=== PATIENT | male | born 1935 | race Caucasian/White ===

== ENCOUNTER → 2019-04-12 | Outpatient (CLI) | payer MEDICARE, MEDICAID ==
[~2019-04-12] MED LIST: ACET325T38 PO; ASCO500T7 PO; ASPI-983 PO; ATOR10TA PO; BISA10SU8 RC; CALC500T7 PO; CARV12.53 PO; CHOL10007 PO; CLON0.1T PO; CLOP75TA28 PO; DOCU-143 PO; DOXA1TAB2 PO; EXEN2AUT SQ; FERR-84 PO; FURO40TA4 PO; GABA-486 PO; INSU100I14 SQ; INSU100I29 SQ; LACT20SO2 PO; MAGN400O7 PO; MICO10PO TOP; MINE3.5O4 OU; NITR0.4T42 SL; OLOP2.5D OU; PANT40TA3 PO; PARO20TA5 PO; RISP0.253 PO; SUCR1TAB36 PO; TR1C15 TP; VERA120T6 PO; VERA240C2 PO; VITA1TAB17 PO
[2019-04-12 11:25] LABS: ALBUMIN 3.7 GM/DL (3.2-4.5); BILIRUBIN,TOTAL 0.4 MG/DL (0.1-1.0); CALCIUM 9.1 MG/DL (8.5-10.1); CREATININE SERUM 1.75 MG/DL (0.60-1.30); POTASSIUM 4.3 MMOL/L (3.6-5.0); TOTAL PROTEIN 6.4 GM/DL (6.4-8.2)
--- NOTE | 2019-04-12 13:54 | Diagnostic Imaging Report ---
PROCEDURE: CT head without contrast. TECHNIQUE: Multiple contiguous axial images were obtained through the brain without the use of intravenous contrast. Auto Exposure Controls were utilized during the CT exam to meet ALARA standards for radiation dose reduction. INDICATION: Right-sided weakness. FINDINGS: There is cerebral cortical atrophy, vascular calcifications and chronic appearing periventricular white matter small vessel disease. There is chronic prominence of the cisterna magna. The ventriculomegaly is congruent with the degree of sulcation. No yung hydrocephalus is present. No focal or generalized cerebral edema and no evidence for hemorrhage or elevation of the pressures. IMPRESSION: Chronic atrophy, white matter disease and atherosclerosis with chronic prominence of the cisterna magna. No hemorrhage, edema or acute finding identified. Dictated by: Dictated on workstation # [id number]
== END ==
LOC: RAD 10:44
PROVIDERS: ATTEND Internal Medicine
DX: Z01.812 Encounter for preprocedural laboratory examination (principal); G31.9 Degenerative disease of nervous system, unspecified; I67.2 Cerebral atherosclerosis; F02.81 Dementia in other diseases classified elsewhere, unspecified severity, with behavioral disturbance; R90.82 White matter disease, unspecified
CPT/HCPCS: 36415; 70450; 80053

== ENCOUNTER 2019-05-14 17:15 | Emergency (ER) | payer MEDICARE, MEDICAID ==
[~2019-05-14] VITALS: Ht 170.1 cm; Wt 90.7 kg
[~2019-05-14 17:15] MED LIST changes: -CARV12.53 PO; -CLON0.1T PO; -FERR-84 PO; -FURO40TA4 PO; -PANT40TA3 PO; -SUCR1TAB36 PO
[2019-05-14] MEDS ORDERED: ASPIRIN 81 MG CHEW (CHILDREN'S ASA) PO ONE (18:15)
[2019-05-14] MEDS ORDERED: PANTOPRAZOLE 40 MG (PROTONIX) VIAL IV ONE ×2 (18:15→19:45)
[2019-05-14 18:23] LABS: BASOPHILS % (AUTO) 0 % (0-10); EOSINOPHILS # (AUTO) 0.2 10^3/uL (0.0-0.3); EOSINOPHILS % (AUTO) 2 % (0-10); HEMATOCRIT 27 % (40-54); HEMOGLOBIN 8.7 G/DL (13.3-17.7); LYMPHOCYTES # (AUTO) 1.4 X 10^3 (1.0-4.0); LYMPHOCYTES % (AUTO) 14 % (12-44); MEAN CORPUSCULAR HEMOGLOBIN 27 PG (25-34); MEAN CORPUSCULAR HGB CONC 32 G/DL (32-36); MEAN CORPUSCULAR VOLUME 86 FL (80-99); MEAN PLATELET VOLUME 11.5 FL (7.4-10.4); MONOCYTES # (AUTO) 0.8 X 10^3 (0.0-1.0); MONOCYTES % (AUTO) 8 % (0-12); NEUTROPHILS # (AUTO) 7.3 X 10^3 (1.8-7.8); NEUTROPHILS % (AUTO) 76 % (42-75); PLATELET COUNT 389 10^3/uL (130-400); RED CELL DISTRIBUTION WIDTH 13.5 % (10.0-14.5); WHITE BLOOD COUNT 9.7 10^3/uL (4.3-11.0)
[2019-05-14 18:26] LABS: INR 1.1 (0.8-1.4); PROTHROMBIN TIME PATIENT 14.1 SEC (12.2-14.7)
[2019-05-14 18:40] LABS: ALBUMIN 3.9 GM/DL (3.2-4.5); BILIRUBIN,TOTAL 0.3 MG/DL (0.1-1.0); CALCIUM 9.4 MG/DL (8.5-10.1); CREATININE SERUM 2.75 MG/DL (0.60-1.30); MAGNESIUM 1.9 MG/DL (1.6-2.4); POTASSIUM 4.4 MMOL/L (3.6-5.0); TOTAL PROTEIN 6.8 GM/DL (6.4-8.2)
[2019-05-14 18:47] LABS: CREATINE KINASE MB 1.8 NG/ML (<6.6)
--- NOTE | 2019-05-14 19:07 | Diagnostic Imaging Report ---
CLINICAL INDICATION: Patient with chest pain. EXAM: Portable chest x-ray upright view. COMPARISONS: Chest x-ray dated 05/03/2019. FINDINGS: Lungs/pleura: Lungs are clear. There is no pneumothorax. There is no pleural effusion. Mediastinum: Unremarkable. Pulmonary vasculature: Unremarkable. Heart: Stable upper limits of normal heart size. Bones/extrathoracic soft tissue: Unremarkable. IMPRESSION: Stable chest x-ray exam with no interval radiographic evidence of acute cardiopulmonary process. Dictated by: Dictated on workstation # [id number]
[2019-05-14 19:10] LABS: BILIRUBIN,URINE NEGATIVE (NEGATIVE); CLARITY,URINE CLEAR; COLOR,URINE YELLOW; GLUCOSE, URINE (UA) NEGATIVE (NEGATIVE); KETONES,URINE NEGATIVE (NEGATIVE); LEUKOCYTE ESTERASE ,URINE NEGATIVE (NEGATIVE); NITRITE,URINE NEGATIVE (NEGATIVE); PROTEIN,URINE 2+ (NEGATIVE)
[2019-05-14 19:23] LABS: BACTERIA,URINE TRACE /HPF
[2019-05-14 19:24] LABS: AMORPHOUS SEDIMENT,UR MOD AMOR URATES /LPF
--- NOTE | 2019-05-14 19:37 | ED Cardiac General ---
History of Present Illness General Chief Complaint: Chest Pain Stated Complaint: POSSIBLE SEPTIC, ABNORMAL LABS Nursing Triage Note: PATIENT BROUGHT FROM THE S[facility]IOR [facility]IVING WITH COMPLAINT OF CHEST PAIN, ABNORMAL LABS, ANEMIA AND POSSIBLE SEPSIS. 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 DID NOT EAT MEALS TODAY. PT STATES PAIN IS IN HIS MID AND LOWER CHEST DENIES COUGH DENIES SWEATS DENIES NAUSEA OR VOMITING NO KNOWN FEVER OR SWEATS PT DENIES SWELLING IN HIS LEGS/FEET, BUT DOES HAVE LEG EDEMA ON EXAM STAFF MEMBER STATES THEY WERE GETTING READY TO HAVE DINNER, WHEN THE DR CALLED AND SAID HE NEEDED TO COME HERE--HAD LAB DONE TODAY AND HGB WAS 7.6, SED RATE WAS ELEVATED AND HIS CREATININE WAS ELEVATED TO 2.7 PT WAS ADMITTED HERE 05/03-05/05 WITH NSTEMI ( ONLY OTHER TIME HE HAS BEEN TO THIS FACILITY) PT WAS TREATED CONSERVATIVELY, BASED ON PT'S AGE, LEVEL OF DEMENTIA, AFTER DISCUSSION WITH PT'S DAUGHTER, WHO IS DPOA. HE DID NOT HAVE A CARDIAC CATH, BUT WAS STARTED ON ASPIRIN AND PLAVIX. PT ALSO HAD CHF AND VERY ELEVATED BP AT THAT TIME. PT IS DNR/DNI PT HAS BEEN RESIDENT AT [facility] SINCE 01/16/19 PRIOR TO THAT HE WAS AT [facility], AND PRIOR TO THAT HE WAS A RESIDENT AT [facility] IN [place], [place]. NTG SL SODA DRIER FEEDER: No ASA po SODA DRIER FEEDER: No PCP: [facility] Allergies and Home Medications Allergies Coded Allergies: No Known Drug Allergies (Unverified , 05/03/19) Home Medications Acetaminophen 325 Mg Tablet, 325 MG PO Q6H PRN for PAIN-MILD (1-4), (Reported) Ascorbic Acid 500 Mg Tablet, 1,000 MG PO BID, (Reported) TAKES 2 (500MG) TABLETS Aspirin 81 Mg Tablet.dr, 81 MG PO DAILY, (Reported) Atorvastatin Calcium 10 Mg Tablet, 10 MG PO DAILY, (Reported) Bisacodyl 10 Mg Supp.rect, 10 MG RC DAILY PRN for CONSTIPATION-4TH LINE, (Reported) Calcium Carbonate 200 Mg Tab.chew, 2 TAB.CHEW PO BID, (Reported) Cholecalciferol (Vitamin D3) 1,000 Unit Capsule, 2,000 UNIT PO DAILY, (Reported) Clopidogrel Bisulfate 75 Mg Tablet, 75 MG PO DAILY Prescribed by: MARSHALL ORTIZ on 05/05/191216 Docusate Sodium 100 Mg Capsule, 100 MG PO BID, (Reported) Doxazosin Mesylate 1 Mg Tablet, 1 MG PO DAILY, (Reported) Exenatide Microspheres 2 Mg/0.85 Ml Auto.injct, 2 MG SQ We, (Reported) Gabapentin 100 Mg Capsule, 100 MG PO BID, (Reported) Insulin Aspart 300 Units/3 Ml Solution, 8 UNITS SQ TIDAC, (Reported) Insulin Detemir 100 Unit/1 Ml Insuln.pen, 25 UNIT SQ HS, (Reported) HOLD IF BLOOD SUGAR IS LESS THAN 70 Lactulose 20 Gm/30 Ml Solution, 30 ML PO Q8H PRN for CONSTIPATION-3RD LINE, (Reported) Magnesium Hydroxide 400 Mg/5 Ml Oral.susp, 30 ML PO DAILY PRN for CONSTIPATION- 7TH LINE, (Reported) Miconazole Nitrate 10 Gm Powder, TOP BID, (Reported) APPLY TO ABDOMINAL FOLD Mineral Oil/Petrolatum,White 3.5 Gm Oint...g., OU HS PRN for EYE REDNESS, (Reported) Nitroglycerin 0.4 Mg Tab.subl, 0.4 MG SL PRN PRN for CHEST PAIN (ANGINA) Prescribed by: MARSHALL ORTIZ on 05/05/191216 Olopatadine HCl 2.5 Ml Drops, 1 DROP OU DAILY, (Reported) Paroxetine HCl 20 Mg Tablet, 20 MG PO DAILY, (Reported) Risperidone 0.25 Mg Tablet, 0.25 MG PO BID, (Reported) Triamcinolone Acet 15 Gm Cr, TP BID, (Reported) APPLY TO L THUMB Verapamil HCl 240 Mg Cap24h.pel, 240 MG PO BID, (Reported) Verapamil HCl 120 Mg Tablet, 120 MG PO BID, (Reported) Vitamin B Complex 1 Each Tablet, 2 TAB PO DAILY, (Reported) Patient Home Medication List Home Medication List Reviewed: Yes Review of Systems Review of Systems Constitutional: No chills, No diaphoresis, No dizziness, No fever Respiratory: See HPI, Shortness of Air, SOA With Exertion Cardiovascular: See HPI, Chest Pain, Edema; Denies Lightheadedness, Denies Syncope Gastrointestinal: Abdominal Pain; Denies Constipated, Denies Diarrhea; Poor Appetite; Denies Vomiting Genitourinary: No Symptoms Reported Musculoskeletal: no symptoms reported Skin: no symptoms reported Psychiatric/Neurological: No Symptoms Reported Endocrine: No Symptoms Reported Hematologic/Lymphatic: See HPI Past Ujriqot-Ozszjo-Iojuol Hx Past Med/Social Hx: Reviewed and Corrections made Patient Social History Smoking Status: Unknown if Ever Smoked Recent Foreign Travel: No Contact w/Someone Who Travel: No Recent Infectious Disease Expo: No Recent Hopitalizations: No Immunizations Up To Date Date of Influenza Vaccine: Mar 28, 2019 Seasonal Allergies Seasonal Allergies: No Past Medical History Surgeries: No (UNKNOWN--PT CANNOT RECALL ) Respiratory: No Cardiac: Yes (NSTEMI 05/03/19--TREATED CONSERVATIVELY WITH ASPIRIN AND PLAVIX --NO CARDIAC CATH; ECHOCARDIOGRAM 05/04/19--EF 40-45%, MILD MR, TR AND AR, HYPOKINESIS OF INFERIOR LATERAL MYOCARDIUM; CHF) Coronary Artery Disease, Heart Attack, High Cholesterol, Hypertension Neurological: Yes (VASCULAR DEMENTIA; PERIPHERAL NEUROPATHY; ESSENTIAL TREMOR) Dementia, Neuropathy Genitourinary: Yes (RENAL INSUFFICIENCY; OCCASIONAL URINARY INCONTINENCE) Benign Prostatic Hyperpl, Renal Failure Gastrointestinal: Yes (OCCASIONAL BOWEL INCONTINENCE) Chronic Constipation, Ulcer Musculoskeletal: Yes (CHRONIC GENERALIZED PAIN AND WEAKNESS/GAIT DISTURBANCE) Endocrine: Yes Diabetes, Insulin dep HEENT: Yes (DRY EYES) Dysphagia Psychosocial: Yes (VASCULAR DEMENTIA WITH BEHAVIOR DISTURBANCE; SEXUAL AGGRESSIVE BEHAVIOR) Depression Integumentary: No Blood Disorders: Yes (ANEMIA) Physical Exam Vital Signs Vital Signs - First Documented 05/14/19 17:50 Temp 36.9 Pulse 62 Resp 18 B/P (MAP) 152/76 (101) Pulse Ox 95 O2 Delivery Room Air Capillary Refill : Less Than 3 Seconds Height, Weight, BMI Height: '" Weight: lbs. oz. kg; 31.00 BMI Method: General Appearance: No Apparent Distress, WD/WN HEENT: PERRL/EOMI, Pale Conjunctivae (L), Pale Conjunctivae (R) Neck: Normal Inspection Respiratory: Normal Breath Sounds, No Accessory Muscle Use, No Respiratory Distress Cardiovascular: Regular Rate, Rhythm, Systolic Murmur (FAINT), Extra Beats (OCCASIONAL ECTOPY C/W PVC'S) Gastrointestinal: Normal Bowel Sounds, No Organomegaly, No Pulsatile Mass, Non Tender, Soft Rectal: Normal Exam, Normal Rectal Tone, Heme Negative Stool (STOOL IS SOFT FORMED AND DARK BROWN); No Hemorrhoids, No Tenderness Extremity: Normal Capillary Refill, Normal Range of Motion, Non Tender, No Calf Tenderness, Pedal Edema (1+ ON LEFT, 2+ ON RIGHT) Neurologic/Psychiatric: Alert, No Motor/Sensory Deficits (GROSS MOTOR/SENSORY INTACT), 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 BUT CAN ANSWER QUESTIONS WHEN DOING REVIEW OF SYSTEMS; FLAT AFFECT. ) Skin: Warm/Dry, Pallor Focused Exam Lactate Level 05/14/19 18:46: Lactic Acid Level 1.01 Lactic Acid Level Laboratory Tests Test 05/14/19 18:46 Lactic Acid Level 1.01 MMOL/L (0.50-2.00) Progress/Results/Core Measures Results/Orders Lab Results Laboratory Tests Test 05/14/19 17:52 05/14/19 18:46 05/14/19 19:04 Range/Units White Blood Count 9.7 4.3-11.0 10^3/uL Red Blood Count 3.17 L 4.35-5.85 10^6/uL Hemoglobin 8.7 L 13.3-17.7 G/DL Hematocrit 27 L 40-54 % Mean Corpuscular Volume 86 80-99 FL Mean Corpuscular Hemoglobin 27 25-34 PG Mean Corpuscular Hemoglobin Concent 32 32-36 G/DL Red Cell Distribution Width 13.5 10.0-14.5 % Platelet Count 389 130-400 10^3/uL Mean Platelet Volume 11.5 H 7.4-10.4 FL Neutrophils (%) (Auto) 76 H 42-75 % Lymphocytes (%) (Auto) 14 12-44 % Monocytes (%) (Auto) 8 0-12 % Eosinophils (%) (Auto) 2 0-10 % Basophils (%) (Auto) 0 0-10 % Neutrophils # (Auto) 7.3 1.8-7.8 X 10^3 Lymphocytes # (Auto) 1.4 1.0-4.0 X 10^3 Monocytes # (Auto) 0.8 0.0-1.0 X 10^3 Eosinophils # (Auto) 0.2 0.0-0.3 10^3/uL Basophils # (Auto) 0.0 0.0-0.1 10^3/uL Prothrombin Time 14.1 12.2-14.7 SEC INR Comment 1.1 0.8-1.4 Activated Partial Thromboplast Time 40 H 24-35 SEC Sodium Level 137 135-145 MMOL/L Potassium Level 4.4 3.6-5.0 MMOL/L Chloride Level 101 98-107 MMOL/L Carbon Dioxide Level 25 21-32 MMOL/L Anion Gap 11 5-14 MMOL/L Blood Urea Nitrogen 40 H 7-18 MG/DL Creatinine 2.75 H 0.60-1.30 MG/DL Estimat Glomerular Filtration Rate 22 BUN/Creatinine Ratio 15 Glucose Level 127 H 70-105 MG/DL Calcium Level 9.4 8.5-10.1 MG/DL Corrected Calcium 9.5 8.5-10.1 MG/DL Magnesium Level 1.9 1.6-2.4 MG/DL Total Bilirubin 0.3 0.1-1.0 MG/DL Aspartate Amino Transf (AST/SGOT) 15 5-34 U/L Alanine Aminotransferase (ALT/SGPT) 14 0-55 U/L Alkaline Phosphatase 69 40-136 U/L Total Creatine Kinase 50 30-200 U/L Creatine Kinase MB 1.8 <6.6 NG/ML Myoglobin 226.4 H 10.0-92.0 NG/ML Troponin I < 0.028 <0.028 NG/ML B-Type Natriuretic Peptide 919.8 H <100.0 PG/ML Total Protein 6.8 6.4-8.2 GM/DL Albumin 3.9 3.2-4.5 GM/DL Amylase Level 34 25-125 U/L Lipase 51 8-78 U/L Lactic Acid Level 1.01 0.50-2.00 MMOL/L Urine Color YELLOW Urine Clarity CLEAR Urine pH 6.0 5-9 Urine Specific [place] >=1.030 1.016-1.022 Urine Protein 2+ H NEGATIVE Urine Glucose (UA) NEGATIVE NEGATIVE Urine Ketones NEGATIVE NEGATIVE Urine Nitrite NEGATIVE NEGATIVE Urine Bilirubin NEGATIVE NEGATIVE Urine Urobilinogen 0.2 < = 1.0 MG/DL Urine Leukocyte Esterase NEGATIVE NEGATIVE Urine RBC (Auto) NEGATIVE NEGATIVE Urine RBC NONE /HPF Urine WBC 2-5 /HPF Urine Crystals PRESENT H /LPF Urine Amorphous Sediment MOD CHING URATES H /LPF Urine Bacteria TRACE /HPF Urine Casts PRESENT /LPF Urine Hyaline Casts 2-5 H /LPF Urine Mucus NEGATIVE /LPF Urine Culture Indicated NO Micro Results Microbiology 05/14/19 Influenza Types A,B Antigen (ZOHREH) - Final, Complete My Orders Orders - JAMES LUNA DO Cbc With Automated Diff (05/14/19 18:04) Magnesium (05/14/19 18:04) Chest 1 View, Ap/Pa Only (05/14/19 18:04) Ekg Tracing (05/14/19 18:04) Comprehensive Metabolic Panel (05/14/19 18:04) Myoglobin Serum (05/14/19 18:04) Protime With Inr (05/14/19 18:04) Partial Thromboplastin Time (05/14/19 18:04) O2 (05/14/19 18:04) Monitor-Rhythm Ecg Trace Only (05/14/19 18:04) Ed Iv/Invasive Line Start (05/14/19 18:04) Creatine Kinase (05/14/19 18:04) Creatine Kinase Mb (05/14/19 18:04) Lipase (05/14/19 18:04) Amylase (05/14/19 18:04) BNP (05/14/19 18:04) Troponin I (05/14/19 18:04) Aspirin Chewable Tablet (Baby Aspirin Ch (05/14/19 18:15) Blood Culture (05/14/19 18:04) Urinalysis (05/14/19 18:04) Urine Culture (05/14/19 18:04) Ed Iv/Invasive Line Start (05/14/19 18:04) Ed Iv/Invasive Line Start (05/14/19 18:04) Vital Signs Adult Sepsis Patie Q15M (05/14/19 18:04) O2 (05/14/19 18:04) Remove Rings In Anticipation O (05/14/19 18:04) Lactic Acid Analyzer (05/14/19 18:04) Influenza A And B Antigens (05/14/19 18:04) Type And Screen (05/14/19 18:08) Pantoprazole Injection (Protonix Injecti (05/14/19 18:15) Red Cells Leukocytes Reduced (05/14/19 19:37) Pantoprazole Injection (Protonix Injecti (05/14/19 19:45) Medications Given in ED Current Medications Medications Dose Ordered Sig/Nano Route Start Time Stop Time Status Last Admin Dose Admin Aspirin 324 mg ONCE ONCE PO 05/14/19 18:15 05/14/19 18:16 DC 05/14/19 19:08 324 MG Pantoprazole 40 mg ONCE ONCE IV 05/14/19 18:15 05/14/19 18:16 DC 05/14/19 19:08 40 MG Pantoprazole 40 mg ONCE ONCE IV 05/14/19 19:45 05/14/19 19:46 DC 05/14/19 20:21 40 MG Vital Signs/I&O 05/14/19 05/14/19 05/14/19 17:50 17:50 21:48 Temp 36.9 Pulse 62 58 Resp 18 16 B/P (MAP) 152/76 (101) 138/72 (94) Pulse Ox 95 97 O2 Delivery Room Air Room Air Room Air Blood Pressure Mean: 101 POS Progress Progress Note : Progress Note RESTED QUIETLY FOR ENTIRE ER STAY PT HAD NO COMPLAINTS DURING STAY VITALS REMAINED STABLE NO DETERIORATION IN PT'S CONDITION DURING ER STAY ORDERED A UNIT OF BLOOD, BUT DUE TO MULTIPLE ANTIBODIES, IT COULD NOT BE CROSSMATCHED PRIOR TO PT'S TRANSFER Initial ECG Impression Date: May 14, 2019 Initial ECG Impression Time: 19:49 Initial ECG Rate: 61 Initial ECG Rhythm: Normal Sinus Initial ECG Comparisson: Changed (ST DEPRESSION LATERAL LEADS) Diagnostic Imaging Comments CXR--NO ACUTE PROCESS, PER RADIOLOGIST REPORT AT 1936 Reviewed: Reviewed by Me Departure Communication (Admissions) THIS FACILITY IS ON COMPLETE DIVERSION 1941--SPOKE WITH PT'S DAUGHTER AND DPOA, LYNDSEY, AND SHE REQUESTS THAT PT BE TRANSFERRED TO [facility] IN [place] 1954--CALLED [facility] 2001--SPOKE WITH DR. BIRD, ACCEPTS PT FOR ADMIT/TRANSFER Impression Primary Impression: Severe anemia Additional Impressions: Chest pain RECENT NSTEMI ON PLAVIX AND ASPIRIN THERAPY Acute on chronic renal failure Bilateral leg edema Hx of congestive heart failure Abdominal pain Decreased appetite Dementia DNR/DNI Disposition: XFER SHT-TRM HOSP Condition: Stable Transfer Transfer Reason: Diversion Transfer Facility: [facility] Method of Transfer: EMS Departure-Patient Inst. Referrals: ELMO CULLEN MD (PCP/Family) Primary Care Physician JAMES LUNA DO May 14, 2019 19:37 POS
--- NOTE | 2019-05-14 21:38 | NUR ---
[facility] contacted for patient transfer.
[2019-05-14 21:48] VITALS: BP 138/72
--- NOTE | 2019-05-14 21:48 | NUR ---
Report called to Jillian REO at [facility].
[2019-05-14 22:09] VITALS: BP 130/62
--- OUTSIDE RECORDS SUMMARY | 2019-06-08 20:55 | XMS REPORT | Continuity of Care Document ---
Author Organization Unknown Address Unknown Phone Unavailable Allergies Active Description Code Type Severity Reaction Onset Reported/Identified Relationship to Patient Clinical Status Yes NO KNOWN DRUG ALLERGIES UNKNOWN UNKNOWN Medications Medication Packaging Start Date St op Date Route Dosage Sig ACETAMINOPHEN ORAL TABLET 325mg(Tylenol) MG 01/09/2019 02/08/2019 PRN EVERY 4 Hour SUCRALFATE TAB 1 GM (CARAFATE) GM 01/09/2019 02/08/2019 PRN Q4H INSULIN ASPART PEN INJ 100 U NITS/CC (NOVOLOG FLEXPEN) UNITS 01/09/2019 02/08/2019 AC&0630,1130,1630 CALCIUM CARBONATE TAB 500 MG (TUMS) MG 01/09/2019 02/08/2019 PRN Q6H GABAPENTIN CAP 100 MG (NEURONTIN) MG 01/09/2019 02/08/2019 BID&0800,2000 Docusate sodium 100mg oral capsule (COLACE ) 01/09/2019 02/08/2019 BID&0800,2000 ASCORBIC ACID TAB 500 MG (VITAMIN C) MG 01/09/2019 02/08/2019 BID&0800,2000 AMLODIPINE TAB 2.5 MG (NORVASC) MG 01/09/2019 02/08/2019 BID&0800,2000 Nystatin top powder (Mycostatin) APPLICATION 01/09/2019 01/23/2019 PRN BID SIMVASTATIN TAB 10 MG (ZOCOR) MG 01/09/2019 02/07/2019 QPM&2000 CALCIUM CARBONATE TAB 500 MG (TUMS) TABS 01/09/2019 02/08/2019 BID&0800,2000 INSULIN DETEMIR PEN INJ 100 UNITS/CC (LEVEMIR FLEXPEN) UNITS 01/09/2019 02/07/2019 QHS&2100 PAROXETINE TAB 20 MG (PAXIL) MG 01/10/2019 02/08/2019 QAM&0800 ASPIRIN ENTERIC COATED TAB 8 1 MG (BABY ASPIRIN EC) MG 01/10/2019 02/08/2019 QAM&0800 DOXAZOSIN TAB 2 MG (CARDURA) MG 01/10/2019 02/08/2019 QAM&0800 POLYETHYLENE GLYCOL POWDER U D PWD (MIRALAX 17GM UNIT DOSE PAKS) gm 01/10/2019 01/20/2019 PRN Q3H VITAMIN B COMPLEX TAB (B COMPLEX) cap 01/10/2019 02/08/2019 QAM&0800 PAROXETINE TAB 20 MG (PAXIL) MG 01/10/2019 02/08/2019 Daily&0900 VITAMIN D-3 TAB 1000 UNITS (VITAMIN D-3) UNITS 01/10/2019 02/08/2019 Daily&0900 BISACODYL SUPPOS 10 MG (DULCOLAX SUPPOS) MG 01/10/2019 02/09/2019 PRN Daily MILK OF MAGNESIA LIQ ml 01/10/2019 02/09/2019 PRN Daily LACTULOSE SYRUP LIQ 20 GM/30 CC (CHRONULAC SYRUP) GM 01/12/2019 02/10/2019 BID&0800,2000 INSULIN ASPART PEN INJ 100 U NITS/CC (NOVOLOG FLEXPEN) Dr. Borja UNITS 01/14/2019 01/14/2019 ONCE&1630 TRIAMCINOLONE CRM CRM 0.1 % (ARISTOCORT C RM) doug 01/14/2019 01/24/2019 BID&0800,2000 INSULIN ASPART PEN INJ 100 U NITS/CC (NOVOLOG FLEXPEN) Dr. Borja UNITS 01/15/2019 02/13/2019 AC&0630,1130,163 0 Problems Date Dx Coded Attending Type Code Diagnosis Diagnosed By 01/09/2019 YASEMIN ROWELL 781 .3 LACK OF COORDINATION 01/09/2019 YASEMIN ROWELL 787 .20 DYSPHAGIA, UNSPECIFIED 01/09/2019 YASEMIN ROWELL R13 .10 DYSPHAGIA, UNSPECIFIED 01/09/2019 YASEMIN ROWELL R27 .8 OTHER LACK OF COORDINATION 01/09/2019 YASEMIN ROWELL 781 .3 LACK OF COORDINATION 01/09/2019 YASEMIN ROWELL 787 .20 DYSPHAGIA, UNSPECIFIED 01/09/2019 YASEMIN ROWELL R13 .10 DYSPHAGIA, UNSPECIFIED 01/09/2019 YASEMIN ROWELL R27 .8 OTHER LACK OF COORDINATION 01/09/2019 YASEMIN ROWELL W V60 .89 OTHER SPECIFIED HOUSING OR ECONOMIC CIRCUMSTANCES 01/09/2019 YASEMIN ROWELL Z74 .1 NEED FOR ASSISTANCE WITH PERSONAL CARE 01/09/2019 YASEMIN ROWELL 585 .3 CHRONIC KIDNEY DISEASE, STAGE III (MODERATE) 01/09/2019 YASEMIN ROWELL W 715 .09 OSTEOARTHROSIS, GENERALIZED, INVOLVING MULTIPLE SITES 01/09/2019 ANATOLYTAGLYASEMIN BAKER W 781 .0 ABNORMAL INVOLUNTARY MOVEMENTS 01/09/2019 ANATOLYTAGLYASEMIN BAKER W 781 .3 LACK OF COORDINATION 01/09/2019 YASEMIN ROWELL 787 .20 DYSPHAGIA, UNSPECIFIED 01/09/2019 YASEMIN ROWELL M15 .0 PRIMARY GENERALIZED (OSTEO)ARTHRITIS 01/09/2019 YASEMIN ROWELL N18 .3 CHRONIC KIDNEY DISEASE, STAGE 3 (MODERATE) 01/09/2019 YASEMIN ROWELL R13 .10 DYSPHAGIA, UNSPECIFIED 01/09/2019 YASEMIN ROWELL R25 .1 TREMOR, UNSPECIFIED 01/09/2019 YASEMIN ROWELL R27 .8 OTHER LACK OF COORDINATION 01/09/2019 YASEMIN ROWELL V60 .89 OTHER SPECIFIED HOUSING OR ECONOMIC CIRCUMSTANCES 01/09/2019 YASEMIN ROWELL Z74 .1 NEED FOR ASSISTANCE WITH PERSONAL CARE 01/09/2019 YASEMIN ROWELL 294 .21 DEMENTIA, UNSPECIFIED, IN CONDITIONS CLASSIFIED ELSEWHERE WITH BEHAVIORAL DISTURBANCE 01/09/2019 YASEMIN ROWELL W 333 .1 ESSENTIAL AND OTHER SPECIFIED FORMS OF TREMOR 01/09/2019 YASEMIN ROWELL 585 .3 CHRONIC KIDNEY DISEASE, STAGE III (MODERATE) 01/09/2019 YASEMIN ROWELL W 715 .09 OSTEOARTHROSIS, GENERALIZED, INVOLVING MULTIPLE SITES 01/09/2019 CHARLINEGLYASEMIN BAKER W 781 .0 ABNORMAL INVOLUNTARY MOVEMENTS 01/09/2019 YASEMIN ROWELL 781 .3 LACK OF COORDINATION 01/09/2019 YASEMIN ROWELL 787 .20 DYSPHAGIA, UNSPECIFIED 01/09/2019 YASEMIN ROWELL W F03 .91 UNSPECIFIED DEMENTIA WITH BEHAVIORAL DISTURBANCE 01/09/2019 YASEMIN ROWELL G25 .0 ESSENTIAL TREMOR 01/09/2019 YASEMIN ROWELL M15 .0 PRIMARY GENERALIZED (OSTEO)ARTHRITIS 01/09/2019 YASEMIN ROWELL N18 .3 CHRONIC KIDNEY DISEASE, STAGE 3 (MODERATE) 01/09/2019 YASEMIN ROWELL W R13 .10 DYSPHAGIA, UNSPECIFIED 01/09/2019 YASEMIN ROWELL R25 .1 TREMOR, UNSPECIFIED 01/09/2019 YASEMIN ROWELL W R27 .8 OTHER LACK OF COORDINATION 01/09/2019 YASEMIN ROWELL V12 .71 PERSONAL HISTORY OF PEPTIC ULCER DISEASE 01/09/2019 YASEMIN ROWELL V60 .89 OTHER SPECIFIED HOUSING OR ECONOMIC CIRCUMSTANCES 01/09/2019 YASEMIN ROWELL Z74 .1 NEED FOR ASSISTANCE WITH PERSONAL CARE 01/09/2019 YASEMIN ROWELL Z87 .11 PERSONAL HISTORY OF PEPTIC ULCER DISEASE 01/09/2019 YASEMIN ROWELL W 272 .4 OTHER AND UNSPECIFIED HYPERLIPIDEMIA 01/09/2019 YASEMIN ROWELL W 294 .21 DEMENTIA, UNSPECIFIED, IN CONDITIONS CLASSIFIED ELSEWHERE WITH BEHAVIORAL DISTURBANCE 01/09/2019 YASEMIN ROWELL W 296 .30 MAJOR DEPRESSIVE DISORDER, RECURRENT EPISODE, UNSPECIFIED DEGREE 01/09/2019 YASEMIN ROWELL W 333 .1 ESSENTIAL AND OTHER SPECIFIED FORMS OF TREMOR 01/09/2019 YASEMIN ROWELL W 585 .3 CHRONIC KIDNEY DISEASE, STAGE III (MODERATE) 01/09/2019 YASEMIN ROWELL 715 .09 OSTEOARTHROSIS, GENERALIZED, INVOLVING MULTIPLE SITES 01/09/2019 YASEMIN ROWELL 781 .0 ABNORMAL INVOLUNTARY MOVEMENTS 01/09/2019 YASEMIN ROWELL W 781 .3 LACK OF COORDINATION 01/09/2019 YASEMIN ROWELL 787 .20 DYSPHAGIA, UNSPECIFIED 01/09/2019 YASEMIN ROWELL E78 .5 HYPERLIPIDEMIA, UNSPECIFIED 01/09/2019 YASEMIN ROWELL W F03 .91 UNSPECIFIED DEMENTIA WITH BEHAVIORAL DISTURBANCE 01/09/2019 YASEMIN ROWELL F33 .9 MAJOR DEPRESSIVE DISORDER, RECURRENT, UNSPECIFIED 01/09/2019 YASEMIN ROWELL G25 .0 ESSENTIAL TREMOR 01/09/2019 YASEMIN ROWELL M15 .0 PRIMARY GENERALIZED (OSTEO)ARTHRITIS 01/09/2019 YASEMIN ROWELL W N18 .3 CHRONIC KIDNEY DISEASE, STAGE 3 (MODERATE) 01/09/2019 YASEMIN ROWELL W R13 .10 DYSPHAGIA, UNSPECIFIED 01/09/2019 YASEMIN ROWELL R25 .1 TREMOR, UNSPECIFIED 01/09/2019 YASEMIN ROWELL W R27 .8 OTHER LACK OF COORDINATION 01/09/2019 YASEMIN ROWELL V12 .71 PERSONAL HISTORY OF PEPTIC ULCER DISEASE 01/09/2019 YASEMIN ROWELL V60 .89 OTHER SPECIFIED HOUSING OR ECONOMIC CIRCUMSTANCES 01/09/2019 YASEMIN ROWELL Z74 .1 NEED FOR ASSISTANCE WITH PERSONAL CARE 01/09/2019 YASEMIN ROWELL Z87 .11 PERSONAL HISTORY OF PEPTIC ULCER DISEASE 01/09/2019 YASEMIN ROWELL W 272 .4 OTHER AND UNSPECIFIED HYPERLIPIDEMIA 01/09/2019 YASEMIN ROWELL W 294 .21 DEMENTIA, UNSPECIFIED, IN CONDITIONS CLASSIFIED ELSEWHERE WITH BEHAVIORAL DISTURBANCE 01/09/2019 YASEMIN ROWELL W 296 .30 MAJOR DEPRESSIVE DISORDER, RECURRENT EPISODE, UNSPECIFIED DEGREE 01/09/2019 YASEMIN ROWELL W 333 .1 ESSENTIAL AND OTHER SPECIFIED FORMS OF TREMOR 01/09/2019 YASEMIN ROWELL 414 .01 CORONARY ATHEROSCLEROSIS OF [place] CORONARY ARTERY 01/09/2019 YASEMIN ROWELL W 585 .3 CHRONIC KIDNEY DISEASE, STAGE III (MODERATE) 01/09/2019 YASEMIN ROWELL W 715 .09 OSTEOARTHROSIS, GENERALIZED, INVOLVING MULTIPLE SITES 01/09/2019 YASEMIN ROWELL 781 .0 ABNORMAL INVOLUNTARY MOVEMENTS 01/09/2019 YASEMIN ROWELL W 781 .3 LACK OF COORDINATION 01/09/2019 YASEMIN ROWELL W 787 .20 DYSPHAGIA, UNSPECIFIED 01/09/2019 YASEMIN ROWELL W E78 .5 HYPERLIPIDEMIA, UNSPECIFIED 01/09/2019 YASEMIN ROWELL W F03 .91 UNSPECIFIED DEMENTIA WITH BEHAVIORAL DISTURBANCE 01/09/2019 YASEMIN ROWELL W F33 .9 MAJOR DEPRESSIVE DISORDER, RECURRENT, UNSPECIFIED 01/09/2019 YASEMIN ROWELL W G25 .0 ESSENTIAL TREMOR 01/09/2019 YASEMIN ROWELL W I25 .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 01/09/2019 YASEMIN ROWELL M15 .0 PRIMARY GENERALIZED (OSTEO)ARTHRITIS 01/09/2019 YASEMIN ROWELL W N18 .3 CHRONIC KIDNEY DISEASE, STAGE 3 (MODERATE) 01/09/2019 YASEMIN ROWELL W R13 .10 DYSPHAGIA, UNSPECIFIED 01/09/2019 YASEMIN ROWELL W R25 .1 TREMOR, UNSPECIFIED 01/09/2019 YASEMIN ROWELL W R27 .8 OTHER LACK OF COORDINATION 01/09/2019 YASEMIN ROWELL W V12 .71 PERSONAL HISTORY OF PEPTIC ULCER DISEASE 01/09/2019 YASEMIN ROWELL W V60 .89 OTHER SPECIFIED HOUSING OR ECONOMIC CIRCUMSTANCES 01/09/2019 YASEMIN ROWELL W Z74 .1 NEED FOR ASSISTANCE WITH PERSONAL CARE 01/09/2019 YASEMIN ROWELL W Z87 .11 PERSONAL HISTORY OF PEPTIC ULCER DISEASE 01/09/2019 YASEMIN ROWELL W 272 .4 OTHER AND UNSPECIFIED HYPERLIPIDEMIA 01/09/2019 YASEMIN ROWELL W 294 .21 DEMENTIA, UNSPECIFIED, IN CONDITIONS CLASSIFIED ELSEWHERE WITH BEHAVIORAL DISTURBANCE 01/09/2019 YASEMIN ROWELL W 296 .30 MAJOR DEPRESSIVE DISORDER, RECURRENT EPISODE, UNSPECIFIED DEGREE 01/09/2019 YASEMIN ROWELL W 333 .1 ESSENTIAL AND OTHER SPECIFIED FORMS OF TREMOR 01/09/2019 YASEMIN ROWELL 410 .71 ACUTE MYOCARDIAL I 01/09/2019 YASEMIN ROWELL 414 .01 CORONARY ATHEROSCLEROSIS OF [place] CORONARY ARTERY 01/09/2019 YASEMIN ROWELL 585 .3 CHRONIC KIDNEY DISEASE, STAGE III (MODERATE) 01/09/2019 YASEMIN ROWELL 715 .09 OSTEOARTHROSIS, GENERALIZED, INVOLVING MULTIPLE SITES 01/09/2019 YASEMIN ROWELL 781 .0 ABNORMAL INVOLUNTARY MOVEMENTS 01/09/2019 YASEMIN ROWELL 781 .3 LACK OF COORDINATION 01/09/2019 YASEMIN ROWELL 787 .20 DYSPHAGIA, UNSPECIFIED 01/09/2019 YASEMIN ROWELL E78 .5 HYPERLIPIDEMIA, UNSPECIFIED 01/09/2019 YASEMIN ROWELL F03 .91 UNSPECIFIED DEMENTIA WITH BEHAVIORAL DISTURBANCE 01/09/2019 YASEMIN ROWELL F33 .9 MAJOR DEPRESSIVE DISORDER, RECURRENT, UNSPECIFIED 01/09/2019 YASEMIN ROWELL G25 .0 ESSENTIAL TREMOR 01/09/2019 YASEMIN ROWELL I21 .4 NON-ST ELEVATION (NSTEMI) MYOCARDIAL INFARCTION 01/09/2019 YASEMIN ROWELL I25 .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 01/09/2019 YASEMIN ROWELL M15 .0 PRIMARY GENERALIZED (OSTEO)ARTHRITIS 01/09/2019 YASEMIN ROWELL N18 .3 CHRONIC KIDNEY DISEASE, STAGE 3 (MODERATE) 01/09/2019 YASEMIN ROWELL R13 .10 DYSPHAGIA, UNSPECIFIED 01/09/2019 YASEMIN ROWELL R25 .1 TREMOR, UNSPECIFIED 01/09/2019 YASEMIN ROWELL R27 .8 OTHER LACK OF COORDINATION 01/09/2019 YASEMIN ROWELL V12 .71 PERSONAL HISTORY OF PEPTIC ULCER DISEASE 01/09/2019 YASEMIN ROWELL V60 .89 OTHER SPECIFIED HOUSING OR ECONOMIC CIRCUMSTANCES 01/09/2019 YASEMIN ROWELL Z74 .1 NEED FOR ASSISTANCE WITH PERSONAL CARE 01/09/2019 YASEMIN ROWELL Z87 .11 PERSONAL HISTORY OF PEPTIC ULCER DISEASE 01/09/2019 YASEMIN ROWELL W 272 .4 OTHER AND UNSPECIFIE 01/09/2019 YASEMIN ROWELL W 294 .21 DEMENTIA, UNSPECIFIED, IN CONDITIONS CLASSIFIED ELSEWHERE WITH BEHAVIORAL DISTURBANCE 01/09/2019 YASEMIN ROWELL W 296 .30 MAJOR DEPRESSIVE DISORDER, RECURRENT EPISODE, UNSPECIFIED DEGREE 01/09/2019 YASEMIN ROWELL W 333 .1 ESSENTIAL AND OTHER SPECIFIED FORMS OF TREMOR 01/09/2019 YASEMIN ROWELL 414 .01 CORONARY ATHER 01/09/2019 YASEMIN ROWELL W 585 .3 CHRONIC KIDNEY DISEASE, STAGE III (MODERATE) 01/09/2019 YASEMIN ROWELL W 715 .09 OSTEOARTHROSIS, GENERALIZED, INVOLVING MULTIPLE SITES 01/09/2019 YASEMIN ROWELL W 781 .0 ABNORMAL INVOLUNTARY MOVEMENTS 01/09/2019 YASEMIN ROWELL W 781 .3 LACK OF COORDINATION 01/09/2019 YASEMIN ROWELL W 787 .20 DYSPHAGIA, UNSPECIFIED 01/09/2019 YASEMIN ROWELL W E11 .42 TYPE 2 DIABETES MELLITUS WITH DIABETIC POLYNEUROPATHY 01/09/2019 YASEMIN ROWELL E78 .5 HYPERLIPIDEMIA, UNSPECIFIED 01/09/2019 YASEMIN ROWELL W F03 .91 UNSPECIFIED DEMENTIA WITH BEHAVIORAL DISTURBANCE 01/09/2019 YASEMIN ROWELL W F33 .9 MAJOR DEPRESSIVE DISORDER, RECURRENT, UNSPECIFIED 01/09/2019 YASEMIN ROWELL W G25 .0 ESSENTIAL TREMOR 01/09/2019 YASEMIN ROWELL W I10 ESSENTIAL (PRIMARY) HYPERTENSION 01/09/2019 YASEMIN ROWELL W I21 .4 NON-ST ELEVATION (NSTEMI) MYOCARDIAL INFARCTION 01/09/2019 YASEMIN ROWELL I25 .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 01/09/2019 YASEMIN ROWELL M15 .0 PRIMARY GENERALIZED (OSTEO)ARTHRITIS 01/09/2019 YASEMIN ROWELL N18 .3 CHRONIC KIDNEY DISEASE, STAGE 3 (MODERATE) 01/09/2019 TARTAGLIONE, YASEMIN W R13 .10 DYSPHAGIA, UNSPECIFIED 01/09/2019 ANATOLYTAGLYASEMIN BAKER W R25 .1 TREMOR, UNSPECIFIED 01/09/2019 CHARLINEGLYASEMIN BAKER W R27 .8 OTHER LACK OF COORDINATION 01/09/2019 YASEMIN ROWELL W V12 .71 PERSONAL HISTORY OF PEPTIC ULCER DISEASE 01/09/2019 YASEMIN ROWELL W V60 .89 OTHER SPECIFIED HOUSING OR ECONOMIC CIRCUMSTANCES 01/09/2019 YASEMIN ROWELL W Z74 .1 NEED FOR ASSISTANCE WITH PERSONAL CARE 01/09/2019 YASEMIN ROWELL W Z87 .11 PERSONAL HISTORY OF PEPTIC ULCER DISEASE 01/09/2019 YASEMIN ROWELL 272 .4 OTHER AND UNSPECIFIE 01/09/2019 YASEMIN ROWELL W 294 .21 DEMENTIA, UNSPECIFIED, IN CONDITIONS CLASSIFIED ELSEWHERE WITH BEHAVIORAL DISTURBANCE 01/09/2019 YASEMIN ROWELL W 296 .30 MAJOR DEPRESSIVE DISORDER, RECURRENT EPISODE, UNSPECIFIED DEGREE 01/09/2019 YASEMIN ROWELL W 333 .1 ESSENTIAL AND OTHER SPECIFIED FORMS OF TREMOR 01/09/2019 YASEMIN ROWELL W 585 .3 CHRONIC KIDNEY DISEASE, STAGE III (MODERATE) 01/09/2019 YASEMIN ROWELL W 715 .09 OSTEOARTHROSIS, GENERALIZED, INVOLVING MULTIPLE SITES 01/09/2019 YASEMIN ROWELL W 781 .0 ABNORMAL INVOLUNTARY MOVEMENTS 01/09/2019 YASEMIN ROWELL W 781 .3 LACK OF COORDINATION 01/09/2019 YASEMIN ROWELL W 787 .20 DYSPHAGIA, UNSPECIFIED 01/09/2019 CHARLINEGLYASEMIN BAKER W E11 .42 TYPE 2 DIABETES MELLITUS WITH DIABETIC POLYNEUROPATHY 01/09/2019 YASEMIN ROWELL W E78 .5 HYPERLIPIDEMIA, UNSPECIFIED 01/09/2019 YASEMIN ROWELL W F03 .91 UNSPECIFIED DEMENTIA WITH BEHAVIORAL DISTURBANCE 01/09/2019 YASEMIN ROWELL W F33 .9 MAJOR DEPRESSIVE DISORDER, RECURRENT, UNSPECIFIED 01/09/2019 YASEMIN ROWELL W G25 .0 ESSENTIAL TREMOR 01/09/2019 YASEMIN ROWELL W I10 ESSENTIAL (PRIMARY) HYPERTENSION 01/09/2019 YASEMIN ROWELL W I21 .4 NON-ST ELEVATION (NSTEMI) MYOCARDIAL INFARCTION 01/09/2019 YASEMIN ROWELL I25 .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 01/09/2019 YASEMIN ROWELL M15 .0 PRIMARY GENERALIZED (OSTEO)ARTHRITIS 01/09/2019 YASEMIN ROWELL N18 .3 CHRONIC KIDNEY DISEASE, STAGE 3 (MODERATE) 01/09/2019 YASEMIN ROWELL R13 .10 DYSPHAGIA, UNSPECIFIED 01/09/2019 YASEMIN ROWELL R25 .1 TREMOR, UNSPECIFIED 01/09/2019 YASEMIN ROWELL R27 .8 OTHER LACK OF COORDINATION 01/09/2019 YASEMIN ROWELL V12 .71 PERSONAL HISTORY OF PEPTIC ULCER DISEASE 01/09/2019 YASEMIN ROWELL V60 .89 OTHER SPECIFIED HOUSING OR ECONOMIC CIRCUMSTANCES 01/09/2019 YASEMIN ROWELL Z74 .1 NEED FOR ASSISTANCE WITH PERSONAL CARE 01/09/2019 YASEMIN ROWELL Z87 .11 PERSONAL HISTORY OF PEPTIC ULCER DISEASE 01/09/2019 YASEMIN ROWELL 272 .4 OTHER AND UNSPECIFIE 01/09/2019 YASEMIN ROWELL W 294 .21 DEMENTIA, UNSPECIFIED, IN CONDITIONS CLASSIFIED ELSEWHERE WITH BEHAVIORAL DISTURBANCE 01/09/2019 YASEMIN ROWELL W 296 .30 MAJOR DEPRESSIVE DISORDER, RECURRENT EPISODE, UNSPECIFIED DEGREE 01/09/2019 YASEMIN ROWELL W 333 .1 ESSENTIAL AND OTHER SPECIFIED FORMS OF TREMOR 01/09/2019 YASEMIN ROWELL W 585 .3 CHRONIC KIDNEY DISEASE, STAGE III (MODERATE) 01/09/2019 YASEMIN ROWELL 715 .09 OSTEOARTHROSIS, GENERALIZED, INVOLVING MULTIPLE SITES 01/09/2019 YASEMIN ROWELL 781 .0 ABNORMAL INVOLUNTARY MOVEMENTS 01/09/2019 YASEMIN ROWELL W 781 .3 LACK OF COORDINATION 01/09/2019 YASEMIN ROWELL 787 .20 DYSPHAGIA, UNSPECIFIED 01/09/2019 YASEMIN ROWELL E11 .42 TYPE 2 DIABETES MELLITUS WITH DIABETIC POLYNEUROPATHY 01/09/2019 YASEMIN ROWELL E78 .5 HYPERLIPIDEMIA, UNSPECIFIED 01/09/2019 YASEMIN ROWELL F03 .91 UNSPECIFIED DEMENTIA WITH BEHAVIORAL DISTURBANCE 01/09/2019 YASEMIN ROWELL F33 .9 MAJOR DEPRESSIVE DISORDER, RECURRENT, UNSPECIFIED 01/09/2019 YASEMIN ROWELL G25 .0 ESSENTIAL TREMOR 01/09/2019 YASEMIN ROWELL W I10 ESSENTIAL (PRIMARY) HYPERTENSION 01/09/2019 YASEMIN ROWELL I21 .4 NON-ST ELEVATION (NSTEMI) MYOCARDIAL INFARCTION 01/09/2019 YASEMIN ROWELL I25 .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 01/09/2019 YASEMIN ROWELL M15 .0 PRIMARY GENERALIZED (OSTEO)ARTHRITIS 01/09/2019 YASEMIN ROWELL N18 .3 CHRONIC KIDNEY DISEASE, STAGE 3 (MODERATE) 01/09/2019 YASEMIN ROWELL R13 .10 DYSPHAGIA, UNSPECIFIED 01/09/2019 YASEMIN ROWELL R25 .1 TREMOR, UNSPECIFIED 01/09/2019 YASEMIN ROWELL R27 .8 OTHER LACK OF COORDINATION 01/09/2019 YASEMIN ROWELL W V12 .71 PERSONAL HISTORY OF PEPTIC ULCER DISEASE 01/09/2019 YASEMIN ROWELL V60 .89 OTHER SPECIFIED HOUSING OR ECONOMIC CIRCUMSTANCES 01/09/2019 YASEMIN ROWELL Z74 .1 NEED FOR ASSISTANCE WITH PERSONAL CARE 01/09/2019 YASEMIN ROWELL Z87 .11 PERSONAL HISTORY OF PEPTIC ULCER DISEASE 01/09/2019 YASEMIN ROWELL 272 .4 OTHER AND UNSPECIFIE 01/09/2019 YASEMIN ROWELL W 294 .21 DEMENTIA, UNSPECIFIED, IN CONDITIONS CLASSIFIED ELSEWHERE WITH BEHAVIORAL DISTURBANCE 01/09/2019 YASEMIN ROWELL 296 .30 MAJOR DEPRESSIVE DISORDER, RECURRENT EPISODE, UNSPECIFIED DEGREE 01/09/2019 TARTAGLIONE, YASEMIN W 333 .1 ESSENTIAL AND OTHER SPECIFIED FORMS OF TREMOR 01/09/2019 YASEMIN ROWELL W 585 .3 CHRONIC KIDNEY DISEASE, STAGE III (MODERATE) 01/09/2019 YASEMIN ROWELL 715 .09 OSTEOARTHROSIS, GENERALIZED, INVOLVING MULTIPLE SITES 01/09/2019 YASEMIN ROWELL W 781 .0 ABNORMAL INVOLUNTARY MOVEMENTS 01/09/2019 YASEMIN ROWELL 781 .3 LACK OF COORDINATION 01/09/2019 YASEMIN ROWELL 787 .20 DYSPHAGIA, UNSPECIFIED 01/09/2019 YASEMIN ROWELL W E11 .42 TYPE 2 DIABETES MELLITUS WITH DIABETIC POLYNEUROPATHY 01/09/2019 YASEMIN ORWELL E78 .5 HYPERLIPIDEMIA, UNSPECIFIED 01/09/2019 YASEMIN ROWELL F03 .91 UNSPECIFIED DEMENTIA WITH BEHAVIORAL DISTURBANCE 01/09/2019 YASEMIN ROWELL F33 .9 MAJOR DEPRESSIVE DISORDER, RECURRENT, UNSPECIFIED 01/09/2019 YASEMIN ROWELL W G25 .0 ESSENTIAL TREMOR 01/09/2019 YASEMIN ROWELL W I10 ESSENTIAL (PRIMARY) HYPERTENSION 01/09/2019 YASEMIN ROWELL W I21 .4 NON-ST ELEVATION (NSTEMI) MYOCARDIAL INFARCTION 01/09/2019 YASEMIN ROWELL W I25 .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 01/09/2019 YASEMIN ROWELL M15 .0 PRIMARY GENERALIZED (OSTEO)ARTHRITIS 01/09/2019 YASEMIN ROWELL N18 .3 CHRONIC KIDNEY DISEASE, STAGE 3 (MODERATE) 01/09/2019 YASEMIN ROWELL R13 .10 DYSPHAGIA, UNSPECIFIED 01/09/2019 YASEMIN ROWELL R25 .1 TREMOR, UNSPECIFIED 01/09/2019 YASEMIN ROWELL W R27 .8 OTHER LACK OF COORDINATION 01/09/2019 YASEMIN ROWELL V12 .71 PERSONAL HISTORY OF PEPTIC ULCER DISEASE 01/09/2019 YASEMIN ROWELL V60 .89 OTHER SPECIFIED HOUSING OR ECONOMIC CIRCUMSTANCES 01/09/2019 YASEMIN ROWELL Z74 .1 NEED FOR ASSISTANCE WITH PERSONAL CARE 01/09/2019 YASEMIN ROWELL Z87 .11 PERSONAL HISTORY OF PEPTIC ULCER DISEASE 01/09/2019 YASEMIN ROWELL 272 .4 OTHER AND UNSPECIFIE 01/09/2019 YASEMIN ROWELL W 294 .21 DEMENTIA, UNSPECIFIED, IN CONDITIONS CLASSIFIED ELSEWHERE WITH BEHAVIORAL DISTURBANCE 01/09/2019 YASEMIN ROWELL 296 .30 MAJOR DEPRESSIVE DISORDER, RECURRENT EPISODE, UNSPECIFIED DEGREE 01/09/2019 YASEMIN ROWELL W 333 .1 ESSENTIAL AND OTHER SPECIFIED FORMS OF TREMOR 01/09/2019 YASEMIN ROWELL 585 .3 CHRONIC KIDNEY DISEASE, STAGE III (MODERATE) 01/09/2019 YASEMIN ROWELL 715 .09 OSTEOARTHROSIS, GENERALIZED, INVOLVING MULTIPLE SITES 01/09/2019 YASEMIN ROWELL W 781 .0 ABNORMAL INVOLUNTARY MOVEMENTS 01/09/2019 YASEMIN ROWELL 781 .3 LACK OF COORDINATION 01/09/2019 YASEMIN ROWELL 787 .20 DYSPHAGIA, UNSPECIFIED 01/09/2019 YASEMIN ROWELL W E11 .42 TYPE 2 DIABETES MELLITUS WITH DIABETIC POLYNEUROPATHY 01/09/2019 YASEMIN ROWELL E78 .5 HYPERLIPIDEMIA, UNSPECIFIED 01/09/2019 YASEMIN ROWELL F03 .91 UNSPECIFIED DEMENTIA WITH BEHAVIORAL DISTURBANCE 01/09/2019 YASEMIN ROWELL F33 .9 MAJOR DEPRESSIVE DISORDER, RECURRENT, UNSPECIFIED 01/09/2019 YASEMIN ROWELL G25 .0 ESSENTIAL TREMOR 01/09/2019 YASEMIN ROWELL W I10 ESSENTIAL (PRIMARY) HYPERTENSION 01/09/2019 YASEMIN ROWELL I21 .4 NON-ST ELEVATION (NSTEMI) MYOCARDIAL INFARCTION 01/09/2019 YASEMIN ROWELL I25 .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 01/09/2019 YASEMIN ROWELL M15 .0 PRIMARY GENERALIZED (OSTEO)ARTHRITIS 01/09/2019 TARTAGLIONE, YASEMIN W N18 .3 CHRONIC KIDNEY DISEASE, STAGE 3 (MODERATE) 01/09/2019 CHARLINEGLYASEMIN BAKER W R13 .10 DYSPHAGIA, UNSPECIFIED 01/09/2019 YASEMIN ROWELL W R25 .1 TREMOR, UNSPECIFIED 01/09/2019 YASEMIN ROWELL W R27 .8 OTHER LACK OF COORDINATION 01/09/2019 YASEMIN ROWELL W V12 .71 PERSONAL HISTORY OF PEPTIC ULCER DISEASE 01/09/2019 YASEMIN ROWELL W V60 .89 OTHER SPECIFIED HOUSING OR ECONOMIC CIRCUMSTANCES 01/09/2019 YASEMIN ROWELL W Z74 .1 NEED FOR ASSISTANCE WITH PERSONAL CARE 01/09/2019 YASEMIN ROWELL Z87 .11 PERSONAL HISTORY OF PEPTIC ULCER DISEASE 01/09/2019 YASEMIN ROWELL 272 .4 OTHER AND UNSPECIFIE 01/09/2019 YASEMIN ROWELL W 294 .21 DEMENTIA, UNSPECIFIED, IN CONDITIONS CLASSIFIED ELSEWHERE WITH BEHAVIORAL DISTURBANCE 01/09/2019 YASEMIN ROWELL W 296 .30 MAJOR DEPRESSIVE DISORDER, RECURRENT EPISODE, UNSPECIFIED DEGREE 01/09/2019 YASEMIN ROWELL W 333 .1 ESSENTIAL AND OTHER SPECIFIED FORMS OF TREMOR 01/09/2019 YASEMIN ROWELL W 585 .3 CHRONIC KIDNEY DISEASE, STAGE III (MODERATE) 01/09/2019 YASEMIN ROWELL W 715 .09 OSTEOARTHROSIS, GENERALIZED, INVOLVING MULTIPLE SITES 01/09/2019 YASEMIN ROWELL W 781 .0 ABNORMAL INVOLUNTARY MOVEMENTS 01/09/2019 YASEMIN ROWELL W 781 .3 LACK OF COORDINATION 01/09/2019 YASEMIN ROWELL W 787 .20 DYSPHAGIA, UNSPECIFIED 01/09/2019 YASEMIN ROWELL W E11 .42 TYPE 2 DIABETES MELLITUS WITH DIABETIC POLYNEUROPATHY 01/09/2019 YASEMIN ROWELL E78 .5 HYPERLIPIDEMIA, UNSPECIFIED 01/09/2019 YASEMIN ROWELL W F03 .91 UNSPECIFIED DEMENTIA WITH BEHAVIORAL DISTURBANCE 01/09/2019 YASEMIN ROWELL W F33 .9 MAJOR DEPRESSIVE DISORDER, RECURRENT, UNSPECIFIED 01/09/2019 YASEMIN ROWELL W G25 .0 ESSENTIAL TREMOR 01/09/2019 YASEMIN ROWELL W I10 ESSENTIAL (PRIMARY) HYPERTENSION 01/09/2019 YASEMIN ROWELL I21 .4 NON-ST ELEVATION (NSTEMI) MYOCARDIAL INFARCTION 01/09/2019 YASEMIN ROWELL I25 .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 01/09/2019 YASEMIN ROWELL M15 .0 PRIMARY GENERALIZED (OSTEO)ARTHRITIS 01/09/2019 YASEMIN ROWELL N18 .3 CHRONIC KIDNEY DISEASE, STAGE 3 (MODERATE) 01/09/2019 YASEMIN ROWELL R13 .10 DYSPHAGIA, UNSPECIFIED 01/09/2019 YASEMIN ROWELL R25 .1 TREMOR, UNSPECIFIED 01/09/2019 YASEMIN ROWELL R27 .8 OTHER LACK OF COORDINATION 01/09/2019 YASEMIN ROWELL V12 .71 PERSONAL HISTORY OF PEPTIC ULCER DISEASE 01/09/2019 YASEMIN ROWELL V60 .89 OTHER SPECIFIED HOUSING OR ECONOMIC CIRCUMSTANCES 01/09/2019 YASEMIN ROWELL Z74 .1 NEED FOR ASSISTANCE WITH PERSONAL CARE 01/09/2019 YASEMIN ROWELL Z87 .11 PERSONAL HISTORY OF PEPTIC ULCER DISEASE 01/17/2019 YASEMIN ROWELL 272 .4 OTHER AND UNSPECIFIE 01/17/2019 YASEMIN ROWELL 294 .21 DEMENTIA, UNSPECIFIED, IN C 01/17/2019 YASEMIN ROWELL 296 .30 MAJOR DEPRESSIVE DISORD 01/17/2019 YASEMIN ROWELL 333 .1 ESSENTIAL AND OTHER SPECIFIED FORMS OF TREMOR 01/17/2019 YASEMIN ROWELL 585 .3 CHRONIC KIDNEY DISEASE, STAGE III (MODERATE) 01/17/2019 YASEMIN ROWELL 715 .09 OSTEOARTHROSIS, GENERALIZED, INVOLVING MULTIPLE SITES 01/17/2019 YASEMIN ROWELL 781 .0 ABNORMAL INVOLUNTARY MOVEMENTS 01/17/2019 YASEMIN ROWELL 781 .3 LACK OF COORDINATION 01/17/2019 YASEMIN ROWELL 787 .20 DYSPHAGIA, UNSPECIFIED 01/17/2019 YASEMIN ROWELL E11 .42 TYPE 2 DIABETES MELLITUS WITH DIABETIC POLYNEUROPATHY 01/17/2019 YASEMIN ROWELL E78 .5 HYPERLIPIDEMIA, UNSPECIFIED 01/17/2019 YASEMIN ROWELL F02 .81 DEMENTIA IN H DISEASES CLASSD ELSWHR W BEHAVIORAL DISTURB 01/17/2019 YASEMIN ROWELL F03 .91 UNSPECIFIED DEMENTIA WITH BEHAVIORAL DISTURBANCE 01/17/2019 YASEMIN ROWELL F33 .3 MAJOR DEPRESSV DISORDER, RECURRENT, SEVERE W PSYCH SYMPTOMS 01/17/2019 YASEMIN ROWELL F33 .9 MAJOR DEPRESSIVE DISORDER, RECURRENT, UNSPECIFIED 01/17/2019 YASEMIN ROWELL F41 .1 GENERALIZED ANXIETY DISORDER 01/17/2019 YASEMIN ROWELL G25 .0 ESSENTIAL TREMOR 01/17/2019 YASEMIN ROWELL I10 ESSENTIAL (PRIMARY) HYPERTENSION 01/17/2019 YASEMIN ROWELL I21 .4 NON-ST ELEVATION (NSTEMI) MYOCARDIAL INFARCTION 01/17/2019 YASEMIN ROWELL I25 .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 01/17/2019 YASEMIN ROWELL M15 .0 PRIMARY GENERALIZED (OSTEO)ARTHRITIS 01/17/2019 YASEMIN ROWELL N18 .3 CHRONIC KIDNEY DISEASE, STAGE 3 (MODERATE) 01/17/2019 YASEMIN ROWELL R13 .10 DYSPHAGIA, UNSPECIFIED 01/17/2019 YASEMIN ROWELL R25 .1 TREMOR, UNSPECIFIED 01/17/2019 YASEMIN ROWELL R27 .8 OTHER LACK OF COORDINATION 01/17/2019 YASEMIN ROWELL V12 .71 PE 01/17/2019 YASEMIN ROWELL V60 .89 OTHER SPECIFIED HOUSING OR ECONOMIC CIRCUMSTANCES 01/17/2019 YASEMIN ROWELL Z74 .1 NEED FOR ASSISTANCE WITH PERSONAL CARE 01/17/2019 YASEMIN ROWELL Z87 .11 PERSONAL HISTORY OF PEPTIC ULCER DISEASE Procedures There is no data. Results Test Result Range Rapid Drug Screen + ETOH,Medical - 01/09 08:19 Amphetamine NEGATIVE NEGATIVE Barbiturates POSITIVE NEGATIVE Benzodiazepines NEGATIVE NEGATIVE Cocaine NEGATIVE NEGATIVE Ethanol, Urine <10.00 mg/dL 20.00-80.00 Marijuana NEGATIVE NEGATIVE Methylenedioxymethamphetamine NEGATIVE NEGATIVE Opiates NEGATIVE NEGATIVE Oxycodone NEGATIVE NEGATIVE Phencyclidine NEGATIVE NEGATIVE Propoxyphene NEGATIVE NEGATIVE Tricyclic Antidepressant NEGATIVE NEGAT DAVID Thyroid Stimulating Hormone - 01/09/19 0 8:30 TSH 1.23 mIU/mL 0.32-5.00 MRSA Screen - 01/09/19 08:30 FINAL CULTURE RESULTS MRSA Negative Nasal Culture MEDIA PLATED Setup at 08:47 on 01/09/2019 Lipid Panel - 01/10/19 05:20 C/HDL 4.1 3.7-6.7 Cholesterol 142 mg/dL 100-240 HDL 35 mg/dL 30-85 LDL-Calculated 87 mg/dL 0-100 Trig 102 mg/dL 35-160 VLDL 20 mg/dL 0-42 Comprehensive Metabolic Panel - 01/16/19 05:10 Albumin 3.8 g/dL 3.6-5.1 ALP 77 U/L 35-130 ALT 14 U/L 6-45 Anion Gap 15 6-14 AST 16 U/L 2-40 BUN 28 mg/dL 5-25 Calcium 9.2 mg/dL 8.3-10.4 Chloride 105 mmol/L 95-114 CO2 25 mEq/L 22-33 Creat 1.86 mg/dL 0.50-1.50 eGFR 35 mL/min/1.73m2 >59 Globulin 1.8 g/dL 2.3-3.5 Glucose 103 mg/dL 70-110 Osmo 296 280-295 Potassium 4.2 mmol/L 3.5-5.3 Sodium 141 mmol/L 134-148 TBil 0.3 mg/dL 0.2-1.2 TP 5.6 g/dL 6.0-8.3 Encounters ACCT No. Visit Date/Time Discharge Status Pt. Type Provider Facility Loc./Unit Complaint [id number] 01/09/2019 08:09:00 01/17/2019 09:20: 00 DIS Inpatient YASEMIN ROWELL [facility] [id number] 01/09/2019 09:31:03 Document Registration
== END 2019-05-14 22:11 | disposition short-term general hospital (02) ==
LOC: EDUNIT# 17:15 → ER 17:16
DX: D64.9 Anemia, unspecified (principal); R07.9 Chest pain, unspecified; I21.4 Non-ST elevation (NSTEMI) myocardial infarction; N17.9 Acute kidney failure, unspecified; I13.0 Hypertensive heart and chronic kidney disease with heart failure and stage 1 through stage 4 chronic kidney disease, or unspecified chronic kidney disease; I50.9 Heart failure, unspecified; N18.9 Chronic kidney disease, unspecified; F01.50 Vascular dementia, unspecified severity, without behavioral disturbance, psychotic disturbance, mood disturbance, and anxiety; R63.0 Anorexia; R10.9 Unspecified abdominal pain; I25.10 Atherosclerotic heart disease of native coronary artery without angina pectoris; E78.00 Pure hypercholesterolemia, unspecified; E11.22 Type 2 diabetes mellitus with diabetic chronic kidney disease; E11.51 Type 2 diabetes mellitus with diabetic peripheral angiopathy without gangrene; F32.9 Major depressive disorder, single episode, unspecified; Z79.02 Long term (current) use of antithrombotics/antiplatelets; Z79.82 Long term (current) use of aspirin; Z66 Do not resuscitate; Z79.4 Long term (current) use of insulin
CPT/HCPCS: 36415; 71045; 80053; 81000; 82150; 82550; 82553; 83605; 83690; 83735; 83874; 83880; 84484; 85025; 85610; 85730; 86850; 86870; 86900; 86901; 86902; 86922; 87040; 87088; 87804; 93005; 93041; 96374; 96376

== ENCOUNTER 2019-05-26 18:29 | Inpatient (IN) | payer MEDICARE, MEDICAID ==
[~2019-05-26] VITALS: Ht 170.2 cm; Wt 80.8 kg
[2019-05-26] MEDS ORDERED: NS IV 1000 ML 1,000 ML IV SCH (18:34)
--- NOTE | 2019-05-26 18:41 | ED GI ---
General Chief Complaint: Abdominal/GI Problems Stated Complaint: ABD PAIN Source of Information: Patient, EMS Exam Limitations: Other (dementia) History of Present Illness Date Seen by Provider: May 26, 2019 Time Seen by Provider: 18:24 Initial Comments The patient is a Pleasant, moderately demented, resident [facility] is brought over by EMS because she had a episode of emesis of blood clots about 30 minutes prior to arrival. He has a history recently of having a ruptured peptic ulcer. He used to be on Eliquis but was taken off that recently and is only on aspirin now. He has a history of heart disease. He is still having some nausea but denies any pain. He is not a very good personal historian. EMS reports his shirt and pants were covered in several chicken in size blood clots Allergies and Home Medications Allergies Coded Allergies: No Known Drug Allergies (Unverified , 05/03/19) Home Medications Acetaminophen 325 Mg Tablet, 325 MG PO Q6H PRN for PAIN-MILD (1-4), (Reported) Ascorbic Acid 500 Mg Tablet, 1,000 MG PO BID, (Reported) TAKES 2 (500MG) TABLETS Aspirin 81 Mg Tablet.dr, 81 MG PO DAILY, (Reported) Atorvastatin Calcium 10 Mg Tablet, 10 MG PO DAILY, (Reported) Bisacodyl 10 Mg Supp.rect, 10 MG RC DAILY PRN for CONSTIPATION-4TH LINE, (Reported) Calcium Carbonate 200 Mg Tab.chew, 2 TAB.CHEW PO BID, (Reported) Cholecalciferol (Vitamin D3) 1,000 Unit Capsule, 2,000 UNIT PO DAILY, (Reported) Clopidogrel Bisulfate 75 Mg Tablet, 75 MG PO DAILY Prescribed by: MARSHALL ORTIZ on 05/05/19 1217 Docusate Sodium 100 Mg Capsule, 100 MG PO BID, (Reported) Doxazosin Mesylate 1 Mg Tablet, 1 MG PO DAILY, (Reported) Exenatide Microspheres 2 Mg/0.85 Ml Auto.injct, 2 MG SQ We, (Reported) Gabapentin 100 Mg Capsule, 100 MG PO BID, (Reported) Insulin Aspart 300 Units/3 Ml Solution, 8 UNITS SQ TIDAC, (Reported) Insulin Detemir 100 Unit/1 Ml Insuln.pen, 25 UNIT SQ HS, (Reported) HOLD IF BLOOD SUGAR IS LESS THAN 70 Lactulose 20 Gm/30 Ml Solution, 30 ML PO Q8H PRN for CONSTIPATION-3RD LINE, (Reported) Magnesium Hydroxide 400 Mg/5 Ml Oral.susp, 30 ML PO DAILY PRN for CONSTIPATION- 7TH LINE, (Reported) Miconazole Nitrate 10 Gm Powder, TOP BID, (Reported) APPLY TO ABDOMINAL FOLD Mineral Oil/Petrolatum,White 3.5 Gm Oint...g., OU HS PRN for EYE REDNESS, (Reported) Nitroglycerin 0.4 Mg Tab.subl, 0.4 MG SL PRN PRN for CHEST PAIN (ANGINA) Prescribed by: MARSHALL ORTIZ on 05/05/19 1217 Olopatadine HCl 2.5 Ml Drops, 1 DROP OU DAILY, (Reported) Paroxetine HCl 20 Mg Tablet, 20 MG PO DAILY, (Reported) Risperidone 0.25 Mg Tablet, 0.25 MG PO BID, (Reported) Triamcinolone Acet 15 Gm Cr, TP BID, (Reported) APPLY TO L THUMB Verapamil HCl 240 Mg Cap24h.pel, 240 MG PO BID, (Reported) Verapamil HCl 120 Mg Tablet, 120 MG PO BID, (Reported) Vitamin B Complex 1 Each Tablet, 2 TAB PO DAILY, (Reported) Patient Home Medication List Home Medication List Reviewed: Yes Review of Systems Review of Systems Constitutional: No chills, No diaphoresis, No fever, No malaise EENTM: No Blurred Vision, No Double Vision Respiratory: Denies Cough, Denies Shortness of Air Cardiovascular: Denies Chest Pain, Denies Edema Gastrointestinal: See HPI; Denies Abdominal Pain, Denies Constipated, Denies Diarrhea; Nausea, Vomiting Genitourinary: Denies Burning, Denies Discharge Musculoskeletal: No back pain, No joint pain All Other Systems Reviewed Negative Unless Noted: Yes Past Zobmbmr-Lfumev-Hkvotm Hx Patient Social History Alcohol Use: Denies Use Recreational Drug Use: No Smoking Status: Never a Smoker Recent Foreign Travel: No Contact w/Someone Who Travel: No Recent Hopitalizations: No Immunizations Up To Date Date of Influenza Vaccine: Mar 28, 2019 Seasonal Allergies Seasonal Allergies: No Past Medical History Surgeries: No (UNKNOWN--PT CANNOT RECALL ) Respiratory: No Cardiac: Yes Coronary Artery Disease, Heart Attack, High Cholesterol, Hypertension Neurological: Yes (VASCULAR DEMENTIA; PERIPHERAL NEUROPATHY; ESSENTIAL TREMOR) Dementia, Neuropathy Genitourinary: Yes (RENAL INSUFFICIENCY; OCCASIONAL URINARY INCONTINENCE) Benign Prostatic Hyperpl, Renal Failure Gastrointestinal: Yes (OCCASIONAL BOWEL INCONTINENCE) Chronic Constipation, Ulcer Musculoskeletal: Yes (CHRONIC GENERALIZED PAIN AND WEAKNESS/GAIT DISTURBANCE) Endocrine: Yes Diabetes, Insulin dep HEENT: Yes (DRY EYES) Dysphagia Psychosocial: Yes (VASCULAR DEMENTIA WITH BEHAVIOR DISTURBANCE; SEXUAL AGGRESSIVE BEHAVIOR) Depression Integumentary: No Blood Disorders: Yes (ANEMIA) Physical Exam Vital Signs Vital Signs - First Documented 05/26/19 18:32 Temp 36.3 Pulse 74 Resp 14 B/P (MAP) 132/64 (86) Pulse Ox 98 Capillary Refill : Height/Weight/BMI Height: '" Weight: lbs. oz. kg; 31.00 BMI Method: General Appearance: WD/WN, mild distress HEENT: PERRL/EOMI, normal ENT inspection, pharynx normal (bloody emesis) Neck: full range of motion, supple, normal inspection Respiratory: lungs clear, normal breath sounds, no respiratory distress, no accessory muscle use Cardiovascular: normal peripheral pulses, regular rate, rhythm Peripheral Pulses: 2+ Radial Pulses (R), 2+ Radial Pulses (L) Gastrointestinal: normal bowel sounds, non tender, soft, no organomegaly Extremities: normal inspection, no pedal edema, normal capillary refill Neurologic/Psychiatric: alert, normal mood/affect, oriented x 3 Skin: normal color, warm/dry Progress/Results/Core Measures Results/Orders Lab Results Laboratory Tests Test 05/26/19 18:35 Range/Units White Blood Count 8.5 4.3-11.0 10^3/uL Red Blood Count 2.56 L 4.35-5.85 10^6/uL Hemoglobin 7.1 L 13.3-17.7 G/DL Hematocrit 22 L 40-54 % Mean Corpuscular Volume 85 80-99 FL Mean Corpuscular Hemoglobin 28 25-34 PG Mean Corpuscular Hemoglobin Concent 33 32-36 G/DL Red Cell Distribution Width 13.8 10.0-14.5 % Platelet Count 315 130-400 10^3/uL Mean Platelet Volume 11.0 H 7.4-10.4 FL Neutrophils (%) (Auto) 69 42-75 % Lymphocytes (%) (Auto) 20 12-44 % Monocytes (%) (Auto) 8 0-12 % Eosinophils (%) (Auto) 3 0-10 % Basophils (%) (Auto) 0 0-10 % Neutrophils # (Auto) 5.9 1.8-7.8 X 10^3 Lymphocytes # (Auto) 1.7 1.0-4.0 X 10^3 Monocytes # (Auto) 0.7 0.0-1.0 X 10^3 Eosinophils # (Auto) 0.2 0.0-0.3 10^3/uL Basophils # (Auto) 0.0 0.0-0.1 10^3/uL Prothrombin Time 15.8 H 12.2-14.7 SEC INR Comment 1.2 0.8-1.4 Sodium Level 139 135-145 MMOL/L Potassium Level 4.7 3.6-5.0 MMOL/L Chloride Level 107 98-107 MMOL/L Carbon Dioxide Level 16 L 21-32 MMOL/L Anion Gap 16 H 5-14 MMOL/L Blood Urea Nitrogen 64 H 7-18 MG/DL Creatinine 2.50 H 0.60-1.30 MG/DL Estimat Glomerular Filtration Rate 25 BUN/Creatinine Ratio 26 Glucose Level 189 H 70-105 MG/DL Calcium Level 8.5 8.5-10.1 MG/DL Corrected Calcium 9.1 8.5-10.1 MG/DL Total Bilirubin 0.3 0.1-1.0 MG/DL Aspartate Amino Transf (AST/SGOT) 15 5-34 U/L Alanine Aminotransferase (ALT/SGPT) 11 0-55 U/L Alkaline Phosphatase 52 40-136 U/L Troponin I < 0.028 <0.028 NG/ML B-Type Natriuretic Peptide 194.5 H <100.0 PG/ML Total Protein 5.4 L 6.4-8.2 GM/DL Albumin 3.2 3.2-4.5 GM/DL Lipase 42 8-78 U/L My Orders Orders - SANITAGO ALBA Ed Iv/Invasive Line Start (05/26/19 18:34) Ns Iv 1000 Ml (Sodium Chloride 0.9%) (05/26/19 18:34) Cbc With Automated Diff (05/26/19 18:34) Comprehensive Metabolic Panel (05/26/19 18:34) Lipase (05/26/19 18:34) Pantoprazole Injection (Protonix Injecti (05/26/19 18:45) Ns (Ivpb) (Sodium C... W/Pantoprazole In (05/26/19 18:45) Ondansetron Injection (Zofran Injectio (05/26/19 18:45) Type And Screen (05/26/19 18:42) Protime With Inr (05/26/19 18:44) Ns (Ivpb) (Sodium C... W/Tranexamic Acid (05/26/19 18:45) Tranexamic Acid Injection (Cyklokapron I (05/26/19 18:45) Red Cells Leukocytes Reduced (05/26/19 18:44) Vital Signs: Special (Order) (05/26/19 18:44) Consent-Obtain Consent For (05/26/19 18:44) Monitor S/S Transfusion Reacti (05/26/19 18:44) Ns Iv 500 Ml (Sodium Chloride 0.9%) (05/26/19 18:44) BNP (05/26/19 18:44) Continuous Ekg Monitoring (05/26/19 18:44) Ekg Tracing (05/26/19 18:44) Troponin I (05/26/19 18:44) Chest 1 View, Ap/Pa Only (05/26/19 18:59) Ekg Tracing (05/26/19 18:59) Ct Abdomen/Pelvis Wo (05/26/19 19:12) Medications Given in ED Current Medications Medications Dose Ordered Sig/Nano Route Start Time Stop Time Status Last Admin Dose Admin Ondansetron HCl 8 mg ONCE ONCE IVP 05/26/19 18:45 05/26/19 18:46 DC 05/26/19 18:55 8 MG Pantoprazole 40 mg ONCE ONCE IV 05/26/19 18:45 05/26/19 18:46 DC 05/26/19 18:56 40 MG Tranexamic Acid 1000 mg/Sodium Chloride 110 ml @ 330 mls/hr ONCE ONCE IV 05/26/19 18:45 05/26/19 19:04 DC 05/26/19 18:58 330 MLS/HR Vital Signs/I&O 05/26/19 18:32 Temp 36.3 Pulse 74 Resp 14 B/P (MAP) 132/64 (86) Pulse Ox 98 Progress Progress Note #1: Time: 18:42 Progress Note Pantoprazole drip, CT, labs type and screen. Patient is a history of a non-STEMI less than a month ago May 05. They decided not to do invasive intervention. He has a history of congestive heart failure. Severe hypertension, diabetes and hyperlipidemia. Echocardiogram on 05/04/19 shows EF of 40-45% hypokinesis of the inferior lateral myocardium and grade 1 diastolic dysfunction. Progress Note #2: Time: 18:58 Progress Note Plan a repeat EKG with reversal of the lateral leads to the posterior. Progress Note #3: Time: 19:59 Progress Note Discussed the case with Ansley hollingsworth D POA/daughter. We walked her through the possibility of doing aggressive interventions versus comfort cares only. She is not related to make that decision today. We have offered to put the patient up in the hospital and consult the surgeon to help give her more clear picture so she can make a decision in the morning whether to pursue further, aggressive care or comfort cares only. She was in agreement with this plan. Initial ECG Impression Date: May 26, 2019 Initial ECG Impression Time: 18:52 Initial ECG Rate: 73 Initial ECG Rhythm: Normal Sinus Initial ECG Intervals: Normal Initial ECG Impression: Normal, Nonspecific Changes Initial ECG Comparisson: Unchanged Comment Sinus rhythm with ST depression 1-1/2 blocks in leads V4, V5 and V6. EKG : EKG Time: 19:01 Rate: 70 Rhythm: Normal Sinus Intervals: Normal ECG Comparisson: Unchanged ECG Impression: Normal, Nonspecific Changes Comment Sinus rhythm without ST elevation. Stable ST depression in the lateral leads. Diagnostic Imaging Diagonstic Imaging: Xray Plain Films/CT/US/NM/MRI: chest (1v) Comments NAME: YAZ SHANKS [facility] REC#: [id number] PT STATUS: REG ER : 1935 PHYSICIAN: SANTIAGO ALBA MD ADMIT DATE: 05/26/19/ER Draft POSDate of Exam:05/26/19 CHEST 1 VIEW, AP/PA ONLY PATIENT HISTORY: Hematemesis. TECHNIQUE: Single frontal view of the chest. COMPARISON: 05/14/2019 FINDINGS: The lung volumes are normal. No focal consolidation is seen. No large pleural effusion or pneumothorax is seen. The cardiomediastinal silhouette is normal in size and contour. No acute osseous abnormality is seen. IMPRESSION: No acute pulmonary abnormality seen. Dictated on workstation # [id number] Dict: 05/26/191925 Trans: 05/26/191928 [facility] [id number] Interpreted by: ELISABETH HO MD Electronically signed by: Reviewed: Reviewed by Me Diagonstic Imaging: CT (without IV contrast) Plain Films/CT/US/NM/MRI: abdomen, pelvis Reviewed: Reviewed by Me Departure Communication (Admissions) Time/Spoke to Admitting Phy: 20:07 Discussed case lab imaging findings with Dr. Perez and he agrees to admit the patient to the floor. Time/Spoke to Consulting Phy: 20:02 Dr Milner: Discussed the case and history and concerns of the D POA/daughter. She would like surgery to consult and gather some information/opinions before making decision about comfort cares versus endoscopy or surgery. Dr. Milner was okay with this plan and says it would be okay for clear liquid diet tonight and PPI drip. Impression Primary Impression: Upper GI hemorrhage Additional Impression: Acute blood loss anemia Disposition: ADMITTED INPATIENT Condition: Stable Admissions Decision to Admit Reason: Admit from ER (General) Decision to Admit/Date: May 26, 2019 Time/Decision to Admit Time: 20:00 Departure-Patient Inst. Referrals: ELMO CULLEN MD (PCP/Family) Primary Care Physician SANTIAGO ALBA May 26, 2019 18:41 POS
[2019-05-26 18:43] LABS: BASOPHILS % (AUTO) 0 % (0-10); EOSINOPHILS # (AUTO) 0.2 10^3/uL (0.0-0.3); EOSINOPHILS % (AUTO) 3 % (0-10); HEMATOCRIT 22 % (40-54); HEMOGLOBIN 7.1 G/DL (13.3-17.7); LYMPHOCYTES # (AUTO) 1.7 X 10^3 (1.0-4.0); LYMPHOCYTES % (AUTO) 20 % (12-44); MEAN CORPUSCULAR HEMOGLOBIN 28 PG (25-34); MEAN CORPUSCULAR HGB CONC 33 G/DL (32-36); MEAN CORPUSCULAR VOLUME 85 FL (80-99); MONOCYTES # (AUTO) 0.7 X 10^3 (0.0-1.0); MONOCYTES % (AUTO) 8 % (0-12); NEUTROPHILS # (AUTO) 5.9 X 10^3 (1.8-7.8); NEUTROPHILS % (AUTO) 69 % (42-75); PLATELET COUNT 315 10^3/uL (130-400); RED CELL DISTRIBUTION WIDTH 13.8 % (10.0-14.5); WHITE BLOOD COUNT 8.5 10^3/uL (4.3-11.0)
[2019-05-26] MEDS ORDERED: NS IV 500 ML 500 ML IV SCH (18:44)
[2019-05-26] MEDS ORDERED: PANTOPRAZOLE 40 MG (PROTONIX) VIAL IV ONE (18:45)
[2019-05-26] MEDS ORDERED: TRANEXAMIC ACID INJECTION 1,000 MG in NS (IVPB) 100 ML IV ONE (18:45)
[2019-05-26] MEDS ORDERED: TRANEXAMIC ACID INJECTION 1,000 MG in NS (IVPB) 250 ML IV SCH (18:45)
[2019-05-26] MEDS ORDERED: ONDANSETRON 4 MG/2 ML (SDV) Z0FRAN IVP ONE (18:45)
[2019-05-26] MEDS ORDERED: PANTOPRAZOLE INJECTION 200 MG in NS (IVPB) 100 ML IV SCH (18:45)
--- NOTE | 2019-05-26 19:00 | NUR ---
assumed primary nurse role
[2019-05-26 19:01] LABS: INR 1.2 (0.8-1.4); PROTHROMBIN TIME PATIENT 15.8 SEC (12.2-14.7)
[2019-05-26 19:04] LABS: ALBUMIN 3.2 GM/DL (3.2-4.5); BILIRUBIN,TOTAL 0.3 MG/DL (0.1-1.0); CALCIUM 8.5 MG/DL (8.5-10.1); CREATININE SERUM 2.5 MG/DL (0.60-1.30); POTASSIUM 4.7 MMOL/L (3.6-5.0); TOTAL PROTEIN 5.4 GM/DL (6.4-8.2)
--- NOTE | 2019-05-26 19:10 | NUR ---
report to chalino manzanares. care turned over.
--- NOTE | 2019-05-26 19:29 | Diagnostic Imaging Report ---
PATIENT HISTORY: Hematemesis. TECHNIQUE: Single frontal view of the chest. COMPARISON: 05/14/2019 FINDINGS: The lung volumes are normal. No focal consolidation is seen. No large pleural effusion or pneumothorax is seen. The cardiomediastinal silhouette is normal in size and contour. No acute osseous abnormality is seen. IMPRESSION: No acute pulmonary abnormality seen. Dictated by: Dictated on workstation # [id number]
--- NOTE | 2019-05-26 19:38 | NUR ---
PT RETURNS FROM CT IN STABLE CONDITION
--- NOTE | 2019-05-26 19:52 | Diagnostic Imaging Report ---
PROCEDURE: CT abdomen and pelvis without contrast. TECHNIQUE: Multiple contiguous axial images were obtained through the abdomen and pelvis without the use of intravenous contrast. Auto Exposure Controls were utilized during the CT exam to meet ALARA standards for radiation dose reduction. INDICATION: Hematemesis, hematochezia COMPARISON: None FINDINGS: The lung bases are clear. The heart is normal in size although there is prominence of the left ventricle. Fat is seen along the right ventricular wall. No pericardial effusion is seen. There is coronary and aortic atherosclerosis. The liver demonstrates no focal lesions. The spleen appears normal. Cholecystectomy clips are noted. The pancreas appears normal. The adrenal glands are normal. Numerous simple appearing cysts are seen on the kidneys bilaterally. The largest is located at the inferior left kidney measuring up to 6.7 cm in diameter. The bowel loops are nondistended without obstruction. There is a small hiatal hernia. There is aortic atherosclerosis. There is a small fat-containing ventral hernia without bowel involvement. There is moderate stool at the rectum. No free fluid or free air is seen. IMPRESSION: 1. No evidence of bowel obstruction. Moderate stool at the rectum. 2. Multiple simple appearing cysts of the kidneys bilaterally, the largest measuring 6.7 cm in diameter. 3. Small hiatal hernia. 4. Small fat-containing ventral hernia without bowel involvement. 5. Enlarged left ventricle, with fat in the right ventricular wall, may be from old infarct. Dictated by: Dictated on workstation # [id number]
--- NOTE | 2019-05-26 20:58 | CONSULTATION REPORT ---
DATE OF SERVICE: 05/26/2019 ADMITTING PRIMARY CARE PHYSICIAN: Dr. Calderon. HISTORY OF PRESENT ILLNESS: The patient is an 83-year-old male with a history of dementia and is a resident of [facility] care [facility]. He was brought in by EMS due to hematemesis. EMS reports that he had a similar episode approximately 10 days ago and was brought to [facility] and evaluated and worked up and it sounds as though he did have peptic ulcer disease. He was on Eliquis, Plavix and aspirin for coronary artery disease as well as peripheral vascular disease; however, Eliquis was discontinued. Upon admission, he was found to be anemic with a hemoglobin of 7.1. Again, he did have what sounds to be two episodes of emesis of food particles; however, these were covered with blood. PAST MEDICAL HISTORY: Dementia, hypercholesterolemia, insulin-dependent diabetes, hypertension, peripheral neuropathy, coronary artery disease, essential tremor, renal insufficiency, BPH, peptic ulcer disease, constipation, and history of myocardial infarction. PAST SURGICAL HISTORY: Unknown. ALLERGIES: No known drug allergies. MEDICATIONS: Aspirin, atorvastatin, Plavix, doxazosin, exenatide, gabapentin, regular insulin, Levemir insulin, lactulose, nitroglycerin, paroxetine, risperidone, and verapamil. SOCIAL HISTORY: Negative smoke. FAMILY HISTORY: Noncontributory. Vital signs - temperature 36.3, blood pressure 132/64, pulse 64, and respirations 14. REVIEW OF SYSTEMS: Well-nourished male, currently in no acute distress. He denies any shortness of breath or difficulty breathing. No chest pain, palpitations, diaphoresis. Two episodes of emesis tonight, which was intermixed with red blood. No known red blood per rectum nor any dark tarry stools. No abdominal pain. No fever or chills, no recent inadvertent weight loss. All other review of systems is negative. PHYSICAL EXAMINATION: CHEST: Scattered rales and rhonchi bilaterally. HEART: Regular, no murmurs. EXTREMITIES: Bilateral lower extremity edema +1/3, negative Homans sign. HEENT: No scleral icterus. NECK: No cervical lymphadenopathy. ABDOMEN: Soft, nondistended. There is mild discomfort in the epigastric region upon deep palpation. No peritoneal signs. SKIN: Warm, dry. LABORATORY DATA: WBC is 8.5, hemoglobin 7.1, hematocrit 22, and platelets 315. BUN is 64, creatinine 2.50. ASSESSMENT AND PLAN: An 83-year-old male with a known history of peptic ulcer disease, recently evaluated at [facility]. We will request previous records as well procedures that may have been done. For the time being, we will proceed with resuscitation with packed red blood cells as well as medical therapy for peptic ulcer disease with Protonix bolus followed by a drip and Carafate. Job ID: [id number] DocumentID: [id number] Dictated Date: 05/26/2019 20:31:16 Student Nurse Date: 05/26/2019 20:58:01 Dictated By: JULIA ELIZALDE MD MTDD
--- NOTE | 2019-05-26 21:00 | NUR ---
YZA SHANKS admitted to room 409-1, with an admitting diagnosis of UPPER GI BLEED, on 05/26/19 from ED via CART, accompanied by STAFF.YAZ SHANKS introduced to surroundings, call light, bed controls, phone, TV, temperature control, lights, meal times, smoking policy, visitor policy, side rail policy, bathrooms and showers. Patient Rights given to patient in the handbook. YAZ SHANKS verbalizes understanding that [facility] is not responsible for the loss or damage to any personal effects or valuables that are kept in the patients posession during their hospitalization.
[2019-05-26 21:49] VITALS: BP 147/67
[2019-05-26] MEDS ORDERED: PROMETHAZINE INJ 25 MG/ML (PHENERGAN) AMP IV PRN (22:30)
[2019-05-26] MEDS: PANTOPRAZOLE DRIP 200 MG/NS 100 ML IV SCH ×2 (22:30)
[2019-05-26] MEDS ORDERED: ONDANSETRON 4 MG/2 ML (SDV) Z0FRAN IV PRN (22:30)
[2019-05-26] MEDS ORDERED: fentaNYL INJECTION 100 MCG/2 ML AMP IV PRN (22:45)
--- NOTE | 2019-05-26 23:00 | NUR ---
Unable to get IV access for blood transfusion after multiple attempts by this RN, another nurse, charge nurse, and mix house tender. Total attempts 8. Protonix on standby and use that IV site for blood transfusion per house sup. Will resume protonix after transfusion.
[2019-05-26 23:25] VITALS: BP 149/66
[2019-05-26 23:40] VITALS: BP 146/66
[2019-05-27] VITALS (10 sets, daily range): BP systolic 131–173; BP diastolic 56–78
[2019-05-27 05:20] LABS: BASOPHILS % (AUTO) 0 % (0-10); EOSINOPHILS % (AUTO) 0 % (0-10); HEMATOCRIT 27 % (40-54); HEMOGLOBIN 8.9 G/DL (13.3-17.7); LYMPHOCYTES # (AUTO) 1.3 X 10^3 (1.0-4.0); LYMPHOCYTES % (AUTO) 9 % (12-44); MEAN CORPUSCULAR HEMOGLOBIN 29 PG (25-34); MEAN CORPUSCULAR HGB CONC 33 G/DL (32-36); MEAN CORPUSCULAR VOLUME 86 FL (80-99); MEAN PLATELET VOLUME 11.3 FL (7.4-10.4); MONOCYTES % (AUTO) 7 % (0-12); NEUTROPHILS # (AUTO) 12.5 X 10^3 (1.8-7.8); NEUTROPHILS % (AUTO) 84 % (42-75); PLATELET COUNT 221 10^3/uL (130-400); WHITE BLOOD COUNT 14.9 10^3/uL (4.3-11.0)
[2019-05-27] MEDS: inSUlin ASPART (NovoLOG) 1 UNIT/0.01 ML (CHARGE PER UNIT) SC SCH ×4 (05:39→21:54)
[2019-05-27] MEDS: NS IV 1000 ML 1,000 ML IV SCH ×2 (05:39→11:52)
[2019-05-27 05:47] LABS: BILIRUBIN,TOTAL 1.1 MG/DL (0.1-1.0); CREATININE SERUM 2.25 MG/DL (0.60-1.30); POTASSIUM 4.8 MMOL/L (3.6-5.0); TOTAL PROTEIN 4.9 GM/DL (6.4-8.2)
--- NOTE | 2019-05-27 09:30 | History & Physical-Hospitalist ---
History of Present Illness HPI/Chief Complaint The patient is a Pleasant, moderately demented, resident of [facility] is brought over by EMS because she had a episode of emesis of blood clots about 30 minutes prior to arrival. He has a history recently of having a ruptured peptic ulcer. He used to be on Eliquis but was taken off that recently and is only on aspirin now. He has a history of heart disease. He is still having some nausea but denies any pain. He is not a very good personal historian. EMS reports his shirt and pants were covered in several chicken in size blood clots This morning upon arrival patient was sitting up tolerating liquids voicing no complaints. He is pale and chronically ill in appearance but in no acute distress. He denied abdominal pain diarrhea or nausea. Date Seen 05/27/19 Time Seen by a Provider: 07:30 Attending Physician Ryan Anderson MD PCP Ezequiel Calderon MD Referring Physician Date of Admission May 26, 2019 at 20:13 Home Medications & Allergies Home Medications Reviewed patient Home Medication Reconciliation performed by pharmacy medication reconciliations low voltage technician and/or nursing. Patients Allergies have been reviewed. Allergies Allergies Coded Allergies No Known Drug Allergies (Wrkdpkrlpi11/21/19) Past Dmmjpen-Pekysp-Agfrbr Hx Past Med/Social Hx: Reviewed and Corrections made Patient Social History Alcohol Use: Denies Use Recreational Drug Use: No Smoking Status: Never a Smoker Recent Foreign Travel: No Contact w/other who traveled: No Recent Hopitalizations: No Recent Infectious Disease Expo: No Immunizations Up To Date Date of Influenza Vaccine: Mar 28, 2019 Seasonal Allergies Seasonal Allergies: No Past Medical History Surgeries: Appendectomy, Coronary Stent, Gallbladder Cardiac: Angina, Coronary Artery Disease, Heart Attack, High Cholesterol, Hyper tension Neurological: Dementia, Neuropathy Genitourinary: Benign Prostatic Hyperpl, Renal Failure Gastrointestinal: Chronic Constipation, Esophagitis, Ulcer Endocrine: Diabetes, Non-Insulin dep HEENT: Dysphagia Psychosocial: Depression History of Blood Disorders: Yes (ANEMIA) Review of Systems Constitutional: see HPI Physical Exam Physical Exam Vital Signs Vital Signs - First Documented 05/26/19 05/26/19 18:32 20:45 Temp 36.3 Pulse 74 Resp 14 B/P (MAP) 132/64 (86) Pulse Ox 98 O2 Delivery Room Air Capillary Refill : Greater Than 3 Seconds Height, Weight, BMI Height: '" Weight: lbs. oz. kg; 27.89 BMI Method: General Appearance: No Apparent Distress, Chronically ill Respiratory: Lungs Clear, Normal Breath Sounds, No Accessory Muscle Use, No Respiratory Distress Cardiovascular: Regular Rate, Rhythm, No Edema, No Gallop, No JVD, No Murmur Gastrointestinal: Normal Bowel Sounds, No Organomegaly, No Pulsatile Mass, Non Tender, Soft Extremity: No Calf Tenderness, Other (Trace bilateral edema to the mid tibia bilaterally feet are warm no ulceration noted.) Results Results/Procedures Labs Laboratory Tests 05/26/19 18:35 05/27/19 04:23 05/27/19 06:51 Patient resulted labs reviewed. Assessment/Plan Admission Diagnosis A/P 1. Recurrent upper GI bleed aggravated by aspirin will hold continue proton pump inhibitor therapy and Carafate per Dr. ELIZALDE. Patient currently is hemodynamically stable advise continuing to hold aspirin for at least several weeks with indefinite proton pump inhibitor therapy and conservative medical management. 2. History of coronary artery disease 3. Dementia 4. Anemia secondary to number 1/upper GI bleed continue to monitor blood counts hemoglobin up from the 7 range to 9 after 2 units of packed cells Admission Status: Inpatient Order (span 2 midnights) Reason for Inpatient Admission: See admission diagnosis Clinical Quality Measures DVT/VTE Risk/Contraindication: Risk Factor Score Per Nursin RFS Level Per Nursing on Admit: 4+=Very High RYAN ANDERSON MD May 27, 2019 09:30 POS
--- NOTE | 2019-05-27 10:03 | Conscious Sedation/ASA ---
Conscious Sedation Pre-Proced Time 10:00 ASA Score 3 For ASA 3 and 4: Consider anesthesia and medical clearance. Also, for patients with a history of failed moderate sedation consider anesthesia. Airway Lungs Heart ASA score ASA 1: a normal healthy patient ASA 2: a patient with a mild systemic disease (mid diabetes, controlled hypertension, obesity ASA 3: a patient with a severe systemic disease that limits activity (angina, COPD, prior Myocardial infarction) ASA 4: a patient with an incapacitating disease that is a constant threat to life (CHF, renal failure) ASA 5: a moribund patient not expected to survive 24 hrs. (ruptured aneurysm) ASA 6: a declared brain- patient whose organs are being harvested. For emergent operations, add the letter E after the classification Mallampati Classification Grade 2 Sedation Plan Analgesia, Amnesia, Plan communicated to team members, Discussed options with patient/fam, Discussed risks with patient/fam The patient is an appropriate candidate to undergo the planned procedure, sedation, and anesthesia. The patient immediately re-assessed prior to indication. JULIA ELIZALDE MD May 27, 2019 10:03 POS
--- NOTE | 2019-05-27 10:04 | Progress Note-Pre Operative ---
Pre-Operative Progress Note H&P Reviewed The H&P was reviewed, patient examined and no changes noted. Date Seen by Provider: May 27, 2019 Time Seen by Provider: 10:00 Date H&P Reviewed: May 27, 2019 Time H&P Reviewed: 10:00 Pre-Operative Diagnosis: upper GI bleed, PUD JULIA ELIZALDE MD May 27, 2019 10:04 POS
--- NOTE | 2019-05-27 14:00 | NUR ---
This RN spoke to [facility] regarding Dr Milner's plan to perform an EGD tomorrow afternoon. this RN told DPOA that patient can not sign or comprehend his consent form. Daughter stated she was planning on coming to visit later on this evening to visit patient and sign papers
[2019-05-27] MEDS: PANTOPRAZOLE DRIP 200 MG/NS 100 ML IV SCH ×2 (22:16)
[2019-05-28] VITALS (10 sets, daily range): BP systolic 133–175; BP diastolic 57–88
[2019-05-28] MEDS: inSUlin ASPART (NovoLOG) 1 UNIT/0.01 ML (CHARGE PER UNIT) SC SCH ×4 (05:53→20:59)
[2019-05-28] MEDS: NS IV 1000 ML 1,000 ML IV SCH ×2 (08:57→17:50)
--- NOTE | 2019-05-28 11:00 | Progress Note - Hospitalist ---
THOMPSON CABRAL,MED STUDENT 05/28/19 1100: Subjective HPI/CC On Admission Date Seen by Provider: May 28, 2019 Time Seen by Provider: 09:20 The patient is a Pleasant, moderately demented, resident of [facility] is brought over by EMS because he had an episode of emesis of blood clots about 30 minutes prior to arrival. He has a history recently of having a ruptured peptic ulcer. He used to be on Eliquis but was taken off that recently and is only on aspirin now. He has a history of heart disease. He is still having some nausea but denies any pain. He is not a very good personal historian. EMS reports his shirt and pants were covered in several chicken in size blood clots. Daughter is DPOA who would like to gather more information/opinions prior to deciding on aggressive measures versus comfort care only. Subjective/Events-last exam Patient appears somnolent and did not respond to many questions. He is a poor historian. He denied having any pain or shortness of breath. Plan is for EGD this afternoon with Dr. Milner Objective Exam Vital Signs Vital Signs Date Time Temp Pulse Resp B/P (MAP) Pulse Ox O2 Delivery O2 Flow Rate FiO2 05/28/19 12:00 37.2 59 20 172/74 (106) 100 Room Air Capillary Refill : Greater Than 3 Seconds General Appearance: No Apparent Distress, Chronically ill HEENT: Pharynx Normal, Moist Mucous Membranes Neck: Non Tender, Supple Respiratory: Chest Non Tender, Lungs Clear, Normal Breath Sounds, No Accessory Muscle Use, No Respiratory Distress Cardiovascular: Regular Rate, Rhythm, No Murmur Gastrointestinal: Non Tender, Soft Extremity: No Calf Tenderness, No Pedal Edema Neurologic/Psychiatric: Normal Mood/Affect, Disoriented Skin: Warm/Dry, Pallor Lymphatic: No Adenopathy Results/Procedures Lab Patient resulted labs reviewed. Assessment/Plan Assessment and Plan Assess & Plan/Chief Complaint Assessment: Hematemesis Anemia History of ruptured peptic ulcer CHF HTN CAD with recent NSTEMI 05/05/19 Dementia Plan: EGD today per Dr. Milner Continue protonix and carafate Monitor labs Transfuse as needed Expect discharge back to [facility] in 2 days pending EGD results and once H/H improves Clinical Quality Measures DVT/VTE Risk/Contraindication: Risk Factor Score Per Nursin RFS Level Per Nursing on Admit: 4+=Very High PREMA ORTIZ DO 05/28/192047: Subjective Subjective/Events-last exam Pt from [place] [facility] [place] Poor conversation and recall EGD will be completed at 2:00 today due to hematemesis Proton pump inhibitor and Carafate maintained Dementia is severe Review of Systems General: Fatigue Neurological: Confusion Objective Exam General Appearance: No Apparent Distress, WD/WN, Chronically ill Respiratory: Lungs Clear Cardiovascular: Regular Rate, Rhythm Neurologic/Psychiatric: Alert, Disoriented Assessment/Plan Assessment and Plan Assess & Plan/Chief Complaint Assessment: Hematemesis Dementia Plan: EGD Diagnosis/Problems Diagnosis/Problems (1) Upper GI hemorrhage Status: Acute (2) Acute blood loss anemia Status: Acute (3) Acute on chronic renal failure Status: Acute (4) Bilateral leg edema Status: Acute (5) Dementia Status: Acute Supervisory-Addendum Brief Verification & Attestation Participated in pt care: history, MDM, physical Personally performed: exam, history, MDM, supervision of care Care discussed with: Medical Student Procedures: n/a Results interpretation: Verified all documentation Verification and Attestation of Medical Student E/M Service A medical student performed and documented this service in my presence. I reviewed and verified all information documented by the medical student and made modifications to such information, when appropriate. I personally performed the physical exam and medical decision making. Prema Ortiz, May 28, 2019,20:48 THOMPSON CABRAL,MED STUDENT May 28, 2019 11:00 PREMA MARTINES DO May 28, 2019 20:48 POS
--- NOTE | 2019-05-28 11:23 | NUR ---
CM DISCHARGE PLANNING: Prior to this hospitalization the patient is from [facility]. Nursing reports that he is to have an EGD today d/t multiple small blood clots that the mcc found on the patients clothing. Nursing has been in contact with the patient's DPOA daughter Kaila #[phone] d/t needing to have consent signed for his procedure. He historically has moderate dementia. Plan will be for patient to return back to [facility] once medically cleared. Will continue to follow along for any needs at discharge.
[2019-05-28] MEDS ORDERED: CARV12.53 PO (11:32)
[2019-05-28] MEDS ORDERED: FERR-84 PO (11:32)
[2019-05-28] MEDS ORDERED: PANT40TA3 PO (11:32)
[2019-05-28] MEDS ORDERED: CLOP75TA28 PO (11:32)
[2019-05-28] MEDS ORDERED: FURO40TA4 PO (11:32)
--- NOTE | 2019-05-28 12:51 | NUR ---
MED REC WAS COMPLETED USING THE ORDER SUMMARY REPORT FROM [facility]. I CALLED THE FACILITY TO INQUIRE ABOUT SOME MEDS THAT WERE DISCONTINUED SINCE HIS STAY AT [place]. THE FOLLOWING MEDS HAVE BEEN DC'D: APAP DESENEX COLACE DOXAZOSIN MIRALAX VERAPAMIL LACTULOSE MILK OF [place]
--- NOTE | 2019-05-28 14:15 | NUR ---
Pastoral care visit.
[2019-05-28] MEDS ORDERED: NS IV 500 ML 500 ML ONE (14:48)
[2019-05-28] MEDS ORDERED: HURRICAINE EXT TUBE (BENZOCAINE) XX PRN (15:00)
[2019-05-28] MEDS ORDERED: MIDAZOLAM 5 MG/5 ML (VERSED) VIAL IV PRN (15:00)
[2019-05-28] MEDS ORDERED: LIDOCAINE JELLY 2% 6 ML SYRINGE MM PRN (15:00)
[2019-05-28] MEDS ORDERED: fentaNYL INJECTION 100 MCG/2 ML AMP IVP ONE (15:00)
[2019-05-28] MEDS ORDERED: NS IV 500 ML 500 ML IV ONE (15:00)
[2019-05-28] MEDS ORDERED: proPOfol 200 MG/20 ML (DIPRIVAN) VIAL IV ONE (15:09)
[2019-05-28] MEDS ORDERED: MIDAZOLAM 2 MG/2 ML (VERSED) VIAL ONE (15:10)
[2019-05-28] MEDS ORDERED: LIDOCAINE JELLY 2% 6 ML SYRINGE ONE (15:49)
--- NOTE | 2019-05-28 16:04 | Progress Note-Post Operative ---
Post-Operative Progess Note Surgeon (s)/Electronic Data Interchange Specialist (s) Surgeon JULIA ELIZALDE MD Electronic Data Interchange Specialist: none Pre-Operative Diagnosis upper GI bleed, PUD Post-Operative Diagnosis large HH(4cm) with 2 eddie's ulceration with overying clots and no active bleed. mild gastritis. Procedure & Operative Findings Date of Procedure 05/28/19 Procedure Performed/Findings EGD with bx. Anesthesia Type mac Estimated Blood Loss Estimated blood loss (mL): minimal Specimens/Packing Specimens Removed ge jxn, antrum JULIA ELIZALDE MD May 28, 2019 16:04 POS
--- NOTE | 2019-05-28 16:17 | Anesthesia-General Post-Op ---
MAC Patient Condition Mental Status/LOC: Same as Preop Cardiovascular: Satisfactory Nausea/Vomiting: Absent Respiratory: Satisfactory Pain: Controlled Complications: Absent Post Op Complications Complications None Follow Up Care/Instructions Patient Instructions None needed. Anesthesiology Discharge Order Discharge Order Patient is doing well, no complaints, stable vital signs, no apparent adverse anesthesia problems. WENCESLAO TALBOT DO May 28, 2019 16:17 POS
[2019-05-28] MEDS: PANTOPRAZOLE DRIP 200 MG/NS 100 ML IV SCH ×2 (23:12)
--- NOTE | 2019-05-28 23:33 | OPERATIVE REPORT ---
DATE OF SERVICE: 05/28/2019 ATTENDING PRIMARY CARE PHYSICIAN: Ryan Perez MD PREOPERATIVE DIAGNOSIS: Upper gastrointestinal bleed. POSTOPERATIVE DIAGNOSES: Large hiatal hernia with two Eliceo's ulcerations with overlying fibrin clot, no active bleeding, mild gastritis. PROCEDURE: EGD with biopsy. SURGEON: Julia Elizalde MD. ANESTHESIA: Monitored anesthesia care. ESTIMATED BLOOD LOSS: Minimal. FINDINGS: Large hiatal hernia with two Eliceo's ulcerations with overlying fibrin clot, no active bleeding, mild gastritis. DISPOSITION: The patient tolerated the procedure well. INDICATIONS: The patient is an 83-year-old male with history of dementia and resident of an extended care facility. He was brought by EMS due to two episodes of hematemesis. EMS stated that he has had a similar episode 10 days previous and was brought to [facility] and evaluated and worked up and so was found to have peptic ulcer disease. At that time, he was on 3 anticoagulants including Eliquis, Plavix and aspirin for coronary artery disease as well as peripheral vascular disease; however, his Eliquis was discontinued. Upon this admission, he was found to be anemic with hemoglobin of 7.1. DESCRIPTION OF PROCEDURE: The patient was brought to the endoscopy suite, laid in the left lateral decubitus position with head elevated. After adequate IV pain and sedative medications and monitored anesthesia care, the mouthpiece was applied. The endoscope was placed in the mouth, visualizing the pharynx and hypopharyngeal region. Vocal cords, epiglottis and vallecula identified and appeared to be normal. The endoscope was then gently intubated into the esophageal opening and esophagus insufflated. The endoscope was then advanced to the first, second and third portion of the esophagus at the level of the GE junction was intrathoracic and this was consistent with a type 1 sliding hiatal hernia. There were also two marginal ulcers identified within the incarcerated portion of the esophagus. There was overlying fibrin clot and no active bleeding. Biopsy was taken of the GE junction with visualization of good hemostasis. The endoscope was then advanced into the stomach and endoscope retroflexed again visualizing the large hiatal hernia approximately 4 cm in size. There was a mild to moderate gastritis. No formal ulcerations, polyps, or any neoplasms of the stomach. A biopsy was taken of the antrum to rule out H. pylori. The endoscope was then advanced to the pylorus and the first and second portion of the duodenum, which appeared normal with no distal obstructions. The endoscope was then slowly withdrawn while taking a second look and suctioning of residual air with no additional findings. The patient tolerated the procedure well. We will recommend the necessary lifestyle and diet accommodation including small and more frequent meals, avoidance of eating at night as well as head elevation while lying supine. We will also start him on Protonix 40 mg daily as well as Carafate 1 gram q.i.d. for the next two weeks. Job ID: [id number] DocumentID: [id number] Dictated Date: 05/28/2019 16:09:29 Manager Filter Date: 05/28/2019 23:32:41 Dictated By: JULIA ELIZALDE MD
[2019-05-29] VITALS (9 sets, daily range): BP systolic 134–180; BP diastolic 65–81
[2019-05-29] MEDS: NS IV 1000 ML 1,000 ML IV SCH ×2 (02:02→17:31)
[2019-05-29] MEDS: inSUlin ASPART (NovoLOG) 1 UNIT/0.01 ML (CHARGE PER UNIT) SC SCH ×4 (05:32→20:27)
[2019-05-29 06:31] LABS: BASOPHILS % (AUTO) 0 % (0-10); EOSINOPHILS # (AUTO) 0.4 10^3/uL (0.0-0.3); EOSINOPHILS % (AUTO) 6 % (0-10); HEMATOCRIT 23 % (40-54); HEMOGLOBIN 7.3 G/DL (13.3-17.7); LYMPHOCYTES # (AUTO) 1.1 X 10^3 (1.0-4.0); LYMPHOCYTES % (AUTO) 17 % (12-44); MEAN CORPUSCULAR HEMOGLOBIN 28 PG (25-34); MEAN CORPUSCULAR HGB CONC 32 G/DL (32-36); MEAN CORPUSCULAR VOLUME 88 FL (80-99); MEAN PLATELET VOLUME 11.1 FL (7.4-10.4); MONOCYTES # (AUTO) 0.7 X 10^3 (0.0-1.0); MONOCYTES % (AUTO) 11 % (0-12); NEUTROPHILS # (AUTO) 4.1 X 10^3 (1.8-7.8); NEUTROPHILS % (AUTO) 66 % (42-75); PLATELET COUNT 197 10^3/uL (130-400); RED CELL DISTRIBUTION WIDTH 15.2 % (10.0-14.5); WHITE BLOOD COUNT 6.3 10^3/uL (4.3-11.0)
[2019-05-29 06:55] LABS: ALBUMIN 2.8 GM/DL (3.2-4.5); BILIRUBIN,TOTAL 0.6 MG/DL (0.1-1.0); CALCIUM 7.3 MG/DL (8.5-10.1); CREATININE SERUM 1.74 MG/DL (0.60-1.30); POTASSIUM 3.8 MMOL/L (3.6-5.0); TOTAL PROTEIN 4.6 GM/DL (6.4-8.2)
--- NOTE | 2019-05-29 08:59 | NUR ---
Dr. Borja notified of increased BP
[2019-05-29] MEDS ORDERED: NS IV 500 ML 500 ML IV SCH (10:00)
[2019-05-29] MEDS ORDERED: amLODIPine 5 MG (NORVASC) TAB PO NR (10:00)
[2019-05-29] MEDS ORDERED: IRON SUCROSE 200 MG/10 ML (VENOFER) VIAL IV NR (10:00)
--- NOTE | 2019-05-29 10:56 | Physical Therapy Evaluation ---
PT Evaluation-General Medical Diagnosis Admission Date May 26, 2019 at 20:13 Medical Diagnosis: GI bleed Onset Date: May 28, 2019 Therapy Diagnosis Therapy Diagnosis: weakness Precautions Precautions/Isolations: Fall Prevention, Standard Precautions Weight Bear Status Full Weight Bearing Full Weight Bearing Referral Physician: Prema Borja Reason for Referral: Evaluation/Treatment Medical History Pertinent Medical History: Atrial Fib, DM, Dementia, HTN, Neuropathy Additional Medical History coronary stent placement Current History Pt is a resident of [facility]. He reports he is non ambulatory and can stand very little. Pt is a poor historian due to dementia. He was admitted 05/28 due to vomiting blood. Pt found to have ruptured peptic ulcer. Pt underwent surgical repair of multiple hiatal hernias 05/28/19. Reviewed History: Yes Social History Home: Assisted Prior Prior Level of Function SCALE: Activities may be completed with or without assistive devices. 3-Ykjssflszi-ckrahiq completes the activity by him/herself with no assistance from a helper. 5-Set-up or Clean-up Assistance-helper sets up or cleans up; patient completes activity. [place] assists only prior to or following the activity. 4-Supervision or Touching Assistance-helper provides verbal cues and/or touching/steadying and/or contact guard assistance as patient completes activ ity. Assistance may be provided throughout the activity or intermittently. 3-Partial/Moderate Assistance-helper does LESS THAN HALF the effort. [place] lifts, holds or supports trunk or limbs, but provides less than half the effort. 2-Substantial/Maximal Assistance-helper does MORE THAN HALF the effort. [place] lifts or holds trunk or limbs and provides more than half the effort. 3-Hejkpvcvt-qkcukv does ALL the effort. Patient does none of the effort to complete the activity. Or, the assistance of 2 or more helpers is required for the patient to complete the activity. If activity was not attempted, code reason: 7-Patient Refused. 9-Not Applicable-not attempted and the patient did not perform the activity before the current illness, exacerbation or injury. 10-Not Attempted due to Environmental Limitations-(lack of equipment, weather restraints, etc.). 88-Not Attempted due to Medical Conditions or Safety Concerns. Bed Mobility: 3 Transfers (B,C,W/C): 3 Gait: 9 Stairs: 9 Indoor Mobility (Ambulation): Needed Some Help Stairs: Not Applicalbe Prior Devices Use: Manual wheelchair PT Evaluation-Current Subjective Per patient report he had very little ability to stand and was non ambulatory. He has no c/o pain. Objective Patient Orientation: Confused Attachments: IV ROM/Strength ROM Lower Extremities WFL Strength Lower Extremities gross 3+/5 throughout Sensory Vision: Wears Glasses Hearing: Functional Sensation Left Upper Extremity: Impaired Sensation Left Lower Extremity: Impaired Transfers Roll Left to Right (QC): 3 Sit to Lying (QC): 3 Lying to Sitting/Side of Bed(Q: 3 Sit to Stand (QC): 4 Chair/Hfw-rr-Yeuhx Xfer(QC): 2 (unable to motor plan for transfers; retropulsive ) Car Transfer (QC): 88 Patient able to come to standing and take a few steps (L) and (R) when holding a chair back for support. Unable to motor plan, sequence, or perform stand pivot transfer without 100% tactile and verbal cues. Gait Does the Patient Walk?: No and Walking Goal NOT indicated Walk 10 feet (QC): 9 Walk 50 ft with 2 Turns(QC): 9 Walk 150 ft (QC): 9 Walking 10ft/uneven surface-QC: 9 Wheelchair Training Does the Pt Use a Wheelchair?: Yes Distance: 10 Wheel 50 ft with 2 turns (QC): 88 Wheel 150 ft (QC): 9 Type of Wheelchair: Manual Stairs 1 Step (curb) (QC): 9 4 Steps (QC): 9 12 Steps (QC): 9 Balance Sitting Static: Fair Sitting Dynamic: Fair Standing Static: Poor Standing Dynamic: Poor Picking up an Object (QC): 88 Assessment/Needs Rehab Potential: Fair Post Rehab Potential-Barriers: limited mobility prior to admission PT Short Term Goals Short Term Goals Time Frame: Jun 01, 2019 Roll Left & Right: 4 Sit to lyin Lying to sitting on side of be: 4 Sit to stand: 4 Chair/hmg-gi-qfunv transfer: 4 PT Assisted Goals Assisted Goals PT Assisted Goals Time Frame: Jun 04, 2019 Roll Left & Right (QC): 5 Sit to Lying (QC): 5 Lying-Sitting on Side/Bed(QC): 5 Sit to Stand (QC): 5 Chair/Qwo-ji-Ltoja Xfer(QC): 5 Toilet Transfer (QC): 4 Car Transfer (QC): 3 Does the Patient Walk: No and Walking Goal NOT indicated Walk 10 feet (QC): 9 Walk 50ft with 2 Turns (QC): 9 Walk 150 ft (QC): 9 Walking 10ft on Uneven Surface: 9 1 Step (curb) (QC): 9 4 Steps (QC): 9 12 Steps (QC): 9 Picking up an Object (QC): 9 Does the Pt use WC or Scooter?: Yes Wheel 50 feet with 2 turns (QC: 3 Type: Manual Wheel 150 feet: 9 Type: Manual PT Plan Problem List Problem List: Activity Tolerance, Functional Strength, Balance, Transfer, Bed Mobility Treatment/Plan Treatment Plan: Continue Plan of Care Treatment Plan: Bed Mobility, Functional Activity Jay, Functional Strength, Safety, Transfers Treatment Duration: May 29, 2019 Frequency: 6 times per week Estimated Hrs Per Day: .25 hour per day Patient and/or Family Agrees t: Yes Discharge Recommendations Therapy Discharge Recommendati: 24 Hour Supervision Barriers to Progress dementia Target Placement likely return to prior living arrangement once medically stable. Time/GCodes Time In: 1045 Time Out: 1112 Total Billed Treatment Time: 27 Total Billed Treatment visit, eval high complexity 27 min HARLAN BUNN PT May 29, 2019 10:56 POS
--- NOTE | 2019-05-29 11:09 | Progress Note - Hospitalist ---
THOMPSON CABRAL,MED STUDENT 05/29/19 1109: Subjective HPI/CC On Admission Date Seen by Provider: May 29, 2019 Time Seen by Provider: 09:53 The patient is a Pleasant, moderately demented, [facility] because he had an episode of emesis of blood clots about 30 minutes prior to arrival. He has a history recently of having a ruptured peptic ulcer. He used to be on Eliquis but was taken off that recently and is only on aspirin now. He has a history of heart disease. He is still having some nausea but denies any pain. He is not a very good personal historian. EMS reports his shirt and pants were covered in several chicken in size blood clots. Daughter is DPOA who would like to gather more information/opinions prior to deciding on aggressive measures versus comfort care only. Subjective/Events-last exam Patient was more alert this morning but appears more pale. He denied pain, shortness of breath, or other concerns at this time. His appetite is good. EGD done yesterday showed 4cm hiatal hernia and 2 eliceo ulcerations with overlying clots, no active bleeding. Objective Exam Vital Signs Vital Signs Date Time Temp Pulse Resp B/P (MAP) Pulse Ox O2 Delivery O2 Flow Rate FiO2 05/29/19 08:00 36.1 58 20 179/73 (108) 97 Room Air Capillary Refill : Greater Than 3 Seconds General Appearance: No Apparent Distress, Chronically ill HEENT: PERRL/EOMI, Pharynx Normal Neck: Non Tender, Supple Respiratory: Chest Non Tender, Lungs Clear, Normal Breath Sounds, No Accessory Muscle Use, No Respiratory Distress Cardiovascular: Regular Rate, Rhythm, No Murmur Gastrointestinal: Non Tender, Soft Extremity: Non Tender, No Pedal Edema Neurologic/Psychiatric: Alert, Disoriented Skin: Warm/Dry, Pallor Lymphatic: No Adenopathy Results/Procedures Lab Laboratory Tests 05/29/19 06:02 Patient resulted labs reviewed. Assessment/Plan Assessment and Plan Assess & Plan/Chief Complaint Assessment: Hematemesis Eliceo ulcer x2 Hiatal hernia Anemia with Hgb 7.3 today History of ruptured peptic ulcer CHF HTN CAD with recent NSTEMI 05/05/19 Dementia Plan: Continue protonix and carafate IV venofer Ordered 1 unit PRBCs today OT/PT Monitor labs Clinical Quality Measures DVT/VTE Risk/Contraindication: Risk Factor Score Per Nursin RFS Level Per Nursing on Admit: 4+=Very High PREMA ORTIZ DO 05/30/19 1525: Subjective Subjective/Events-last exam Pt appears to be pale today. Will transfuse one unit of blood. Will give one dose of Venofer. Norvasc 5 Mg was given for elevated BP and Clonidine was also given prn Q4hrs. Pt denies any significant problems, he is looking for his glasses. Review of Systems Pulmonary: Dyspnea Neurological: Confusion Objective Exam General Appearance: Anxious, Chronically ill, Mild Distress Respiratory: Decreased Breath Sounds, Wheezing Cardiovascular: Regular Rate, Rhythm Neurologic/Psychiatric: Alert, Disoriented Assessment/Plan Assessment and Plan Assess & Plan/Chief Complaint Transfuse blood IV iron Discharge back to half-way tomorrow Diagnosis/Problems Diagnosis/Problems (1) Upper GI hemorrhage Status: Acute (2) Renal insufficiency Status: Acute (3) HTN (hypertension) Status: Acute (4) Dementia Status: Acute (5) Acute blood loss anemia Status: Acute Supervisory-Addendum Brief Verification & Attestation Participated in pt care: history, MDM, physical Personally performed: exam, history, MDM, supervision of care Care discussed with: Medical Student Procedures: n/a Results interpretation: Verified all documentation Verification and Attestation of Medical Student E/M Service A medical student performed and documented this service in my presence. I r eviewed and verified all information documented by the medical student and made modifications to such information, when appropriate. I personally performed the physical exam and medical decision making. Prema Ortiz, May 30, 2019,15:24 THOMPSON CABRAL,MED STUDENT May 29, 2019 11:09 PREMA ORTIZ DO May 30, 2019 15:25
--- NOTE | 2019-05-29 11:30 | Occupational Therapy Eval ---
OT Evaluation-General/PLF Medical Diagnosis Admission Date May 26, 2019 at 20:13 Medical Diagnosis: GI bleed Onset Date: May 28, 2019 Therapy Diagnosis Therapy Diagnosis: impaired ADLs and functional mobility Precautions Precautions/Isolations: Fall Prevention, Standard Precautions Referral Physician: Prema Borja Referral Reason: Activity Tolerance, Self Care, Evaluation/Treatment, Strengthening/ROM Medical History Pertinent Medical History: Atrial Fib, DM, Dementia, HTN, Neuropathy Additional Medical History dementia, hypercholesterolemia, insulin-dependent DM, HTN, peripheral neuropathy, CAD, essential tremor, renal insufficiency, BPH, peptic ulcer disease, constipation, hx of myocardial infarction Current History Per H&P: "The patient is a Pleasant, moderately demented, resident of [facility] [place] is brought over by EMS because she had a episode of emesis of blood clots about 30 minutes prior to arrival. He has a history recently of having a ruptured peptic ulcer. He used to be on Eliquis but was taken off that recently and is only on aspirin now. He has a history of heart disease. He is still having some nausea but denies any pain. He is not a very good personal historian. EMS reports his shirt and pants were covered in several chicken in size blood clots This morning upon arrival patient was sitting up tolerating liquids voicing no complaints. He is pale and chronically ill in appearance but in no acute distress. He denied abdominal pain diarrhea or nausea." Reviewed History: Yes Social History Home: Jail ADL-Prior Level of Function SCALE: Activities may be completed with or without assistive devices. 6-Dhrfoleswc-sclfnul completes the activity by him/herself with no assistance from a helper. 5-Set-up or Clean-up Assistance-helper sets up or cleans up; patient completes activity. [place] assists only prior to or following the activity. 4-Supervision or Touching Assistance-helper provides verbal cues and/or touching/steadying and/or contact guard assistance as patient completes activity. Assistance may be provided throughout the activity or intermittently. 3-Partial/Moderate Assistance-helper does LESS THAN HALF the effort. [place] lifts, holds or supports trunk or limbs, but provides less than half the effort. 2-Substantial/Maximal Assistance-helper does MORE THAN HALF the effort. [place] lifts or holds trunk or limbs and provides more than half the effort. 2-Mttitgcgx-poeokv does ALL the effort. Patient does none of the effort to complete the activity. Or, the assistance of 2 or more helpers is required for the patient to complete the activity. If activity was not attempted, code reason: 7-Patient Refused. 9-Not Applicable-not attempted and the patient did not perform the activity before the current illness, exacerbation or injury. 10-Not Attempted due to Environmental Limitations-(lack of equipment, weather restraints, etc.). 88-Not Attempted due to Medical Conditions or Safety Concerns. ADL PLOF Comments Pt unable to provide information about PLOF. When asked if he needed help with bathing and dressing pt reported "I don't think I do". Prior to hospitalization, pt was living at [facility]. Pt unable to state how long he has been at [facility]. Self Care: Unknown Functional Cognition: Needed Some Help DME/Equipment Comments unknown OT Current Status Subjective Pt laying in bed at start of session, agreeable to OT evaluation on this date. Pt denies pain at this time. Mental Status/Objective Patient Orientation: Person, Confused, Place, Time Attachments: IV Current Glasses/Contacts: Yes Hearing Aids: No Dentures/Partials: No Hand Dominance: Right Upper Extremity ROM WFL, BUE shoulder flexion to approximately 150 degrees, pt able to bend arms to reach back of his head Upper Extremity Coordination WFL, Upper Extremity Sensation When asked if he was having tingling or numbness in his arms, pt was unable to answer question. OT asked if his arms felt like normal arms and he said yes. No deficits noted during tx. Upper Extremity Strength grossly 3+/5 MMT ADL-Treatment Eating (QC): 2 (Pt asked for OJ glass, OT handed pt glass. He then required guidance to guide straw to his mouth. pt was then able to drink out of the straw.) Oral Hygiene (QC): 7 Shower/Bathe Self (QC): 7 Upper Body Dressing (QC): 7 Lower Body Dressing (QC): 7 On/Off Footwear (QC): 1 (based on clinical reasoning and pt's current functional level: pt would be unable to maintain sitting balance to perform this task requiring total assistance) Toileting Hygiene (QC): 7 Toilet Transfer (QC): 7 Other Treatments Pt laying in bed at start of session, unable to provide information about PLOF. He asked for a drink of OJ off of his tray, OT assisted pt with drinking (see note above). he then attempted to transfer supine to sit EOB, requiring max assistance with task. Pt had difficulty maintaining sitting balance and unable to scoot hips forward in bed in order for feet to be flat on floor. OT assisted pt to laying supine in bed. Post OT session, pt laying in bed, call light in reach and all needs met. Education OT Patient Education: Correct positioning, Energy conservation, Modified ADL techniques, Progress toward Goal/Update tx plan, Purpose of tx/functional activities, Transfer techniques Teaching Recipient: Patient Teaching Methods: Demonstration, Discussion Response to Teaching: Reinforcement Needed OT Pattern Setter Goals Snf Goals Time Frame: Jun 08, 2019 Eating (QC): 5 Oral Hygiene (QC): 3 Toileting Hygiene (QC): 3 Shower/Bathe Self (QC): 2 Upper Body Dressing (QC): 3 Lower Body Dressing (QC): 2 On/Off Footwear (QC): 2 Additional Goals: 1-Demonstrate ADL Tasks, 2-Verbalize Understanding, 3- ImproveStrength/Jay 1=Demonstrate adherence to instructed precautions during ADL tasks. 2=Patient will verbalize/demonstrate understanding of assistive devices/modifications for ADL. 3=Patient will improve strength/tolerance for activity to enable patient to perform ADL's. OT Education/Plan Problem List/Assessment Assessment: Decreased Activ Tolerance, Decreased UE Strength, Impaired Bed Mobility, Impaired Cognition, Impaired Funct Balance, Impaired I ADL's, Impaired Self-Care Skills Discharge Recommendations Plan/Recommendations: Continue POC Treatment Plan/Plan of Care Treatment,Training & Education: Yes Patient would benefit from OT for education, treatment and training to promote independence in ADL's, mobility, safety and/or upper extremity function for ADL's. Plan of Care: ADL Retraining, Caregiver Training, Functional Mobility, UE Funct Exercise/Act Treatment Duration: Jun 08, 2019 Frequency: 5 times per week Estimated Hrs Per Day: .25 hour per day Agreement: Yes Rehab Potential: Fair Time/GCodes Start Time: 11:03 Stop Time: 11:13 Total Time Billed (hr/min): 10 Billed Treatment Time 1, VIVIANA DALTON OT May 29, 2019 11:30 POS
[2019-05-29] MEDS: cloNIDine 0.1 MG (CATAPRES) TAB PO PRN (16:20)
--- NOTE | 2019-05-29 20:00 | NUR ---
Previous RN did not document end time of blood transfusion. Blood transfusion ended at 14:25. Ended on [facility] by this RN.
[2019-05-29] MEDS: PANTOPRAZOLE DRIP 200 MG/NS 100 ML IV SCH ×2 (22:53)
[2019-05-30] VITALS: BP 190/74
[2019-05-30] MEDS: cloNIDine 0.1 MG (CATAPRES) TAB PO PRN (00:41)
[2019-05-30 01:04] VITALS: BP 190/74
[2019-05-30 06:10] LABS: HEMOGLOBIN 8.7 G/DL (13.3-17.7)
[2019-05-30 08:00] VITALS: BP 167/67
[2019-05-30] MEDS: NS IV 1000 ML 1,000 ML IV SCH (09:01)
[2019-05-30] MEDS ORDERED: CLON0.1T PO (10:17)
[2019-05-30] MEDS ORDERED: SUCR1TAB36 PO (10:17)
--- NOTE | 2019-05-30 10:18 | Discharge Inst-Skilled Nursing ---
Discharge Inst-Skilled NF Reconcile Patient Problems Problems Reviewed?: Yes Chief Complaint The patient is a Pleasant, moderately demented, [facility] because he had an episode of emesis of blood clots about 30 minutes prior to arrival. He has a history recently of having a ruptured peptic ulcer. He used to be on Eliquis but was taken off that recently and is only on aspirin now. He has a history of heart disease. He is still having some nausea but denies any pain. He is not a very good personal historian. EMS reports his shirt and pants were covered in several chicken in size blood clots. Daughter is DPOA who would like to gather more information/opinions prior to deciding on aggressive measures versus comfort care only. Patient Instructions Patient Problems: GI bleed Hematemesis Dementia Goal: [place] Consult/Follow Up/Orders [facility] Sk[facility] NF Admit to: Certification (SNF) I certify that SNF services are required to be given on an inpatient basis because of the above named patient's need for [facility] care on a continuing basis for the conditions(s) for which he/she was receiving inpatient hospital services prior to his/her transfer to the SNF. Prison Facility Order: Nursing Services, Publication Distributor-Evaluate & Treat, Physical Therapy-Evaluate & Treat, Speech Language-Evaluate & Treat Oxygen Delivery Method: Room Air Discharge Diet: Regular Diet Resuscitation Status: Do Not Resuscitate New & Resume Previous Orders New Medications: Sucralfate (Carafate) 1 Gm Tablet 1 GM PO ACHS for 30 Days, TAB Clonidine HCl (Clonidine HCl) 0.1 Mg Tablet 0.1 MG PO Q4HR PRN for SYSTOLIC BLOOD PRESSURE for 30 Days, TAB Continued Medications: Ascorbic Acid (Ascorbic Acid) 500 Mg Tablet 1000 MG PO BID, TAB TAKES 2 (500MG) TABLETS Aspirin (Aspirin EC) 81 Mg Tablet.dr 81 MG PO DAILY, TAB Atorvastatin Calcium (Lipitor) 10 Mg Tablet 10 MG PO HS, TAB Bisacodyl (Bisacodyl) 10 Mg Supp.rect 10 MG RC DAILY PRN for CONSTIPATION-4TH LINE, SUPP.RECT Calcium Carbonate (Tums) 200 Mg Tab.chew 2 TAB.CHEW PO BID, TAB Carvedilol (Carvedilol) 12.5 Mg Tablet 12.5 MG PO BID, TAB Cholecalciferol (Vitamin D3) (Vitamin D3) 1,000 Unit Capsule 2000 UNIT PO DAILY, CAP Exenatide Microspheres (Bydureon Bcise) 2 Mg/0.85 Ml Auto.injct 2 MG SQ We, ML Ferrous Sulfate (Iron) 325 Mg Tablet 325 MG PO Q48H, TAB Furosemide (Furosemide) 40 Mg Tablet 40 MG PO DAILY, TAB Gabapentin (Gabapentin) 100 Mg Capsule 100 MG PO BID, CAP Insulin Aspart (Novolog Flexpen) 300 Units/3 Ml Solution 4 UNITS SQ TIDAC, EA Insulin Detemir (Levemir Flextouch) 100 Unit/1 Ml Insuln.pen 15 UNIT SQ DAILY, EA Mineral Oil/Petrolatum,White (Systane Nighttime Eye Oint) 3.5 Gm Oint...g. OU HS PRN for EYE REDNESS, TUBE Nitroglycerin (Nitroglycerin) 0.4 Mg Tab.subl 0.4 MG SL PRN PRN for CHEST PAIN (ANGINA) for 365 Days, TAB Olopatadine HCl (Pataday) 2.5 Ml Drops 1 DROP OU DAILY, DROPS Pantoprazole Sodium (Pantoprazole Sodium) 40 Mg Tablet.dr 40 MG PO BID, TAB Paroxetine HCl (Paroxetine HCl) 20 Mg Tablet 20 MG PO DAILY, TAB Risperidone (Risperidone) 0.25 Mg Tablet 0.25 MG PO BID, TAB Triamcinolone Acet (Triamcinolone Acetonide 0.1% Cream) 15 Gm Cr TP BID, TUBE APPLY TO L THUMB Vitamin B Complex (Vitamin B Complex) 1 Each Tablet 2 TAB PO DAILY, TAB Discontinued Medications: Clopidogrel Bisulfate (Clopidogrel) 75 Mg Tablet 75 MG PO DAILY, TAB Prema Borja May 30, 2019 10:17 PREMA BORJA DO May 30, 2019 10:18
--- NOTE | 2019-05-30 10:51 | Occupational Ther Daily Note ---
OT Current Status-Daily Note Subjective Pt laying in bed, easily awoken. Pt agreeable to OT tx this AM, denied pain. Mental Status/Objective Patient Orientation: Confused Attachments: IV ADL-Treatment Therapy Code Descriptions/Definitions Functional [place] Measure: 0=Not Assessed/NA 4=Minimal Assistance 1=Total Assistance 5=Supervision or Setup 2=Maximal Assistance 6=Modified [place] 3=Moderate Assistance 7=Complete IndependenceSCALE: Activities may be completed with or without assistive devices. 2-Ygyznyfgwl-piasurs completes the activity by him/herself with no assistance from a helper. 5-Set-up or Clean-up Assistance-helper sets up or cleans up; patient completes activity. [place] assists only prior to or following the activity. 4-Supervision or Touching Assistance-helper provides verbal cues and/or touching/steadying and/or contact guard assistance as patient completes activity. Assistance may be provided throughout the activity or intermittently. 3-Partial/Moderate Assistance-helper does LESS THAN HALF the effort. [place] lifts, holds or supports trunk or limbs, but provides less than half the effort. 2-Substantial/Maximal Assistance-helper does MORE THAN HALF the effort. [place] lifts or holds trunk or limbs and provides more than half the effort. 6-Patopsivy-nlngoh does ALL the effort. Patient does none of the effort to complete the activity. Or, the assistance of 2 or more helpers is required for the patient to complete the activity. If activity was not attempted, code reason: 7-Patient Refused. 9-Not Applicable-not attempted and the patient did not perform the activity before the current illness, exacerbation or injury. 10-Not Attempted due to Environmental Limitations-(lack of equipment, weather restraints, etc.). 88-Not Attempted due to Medical Conditions or Safety Concerns. Eating (QC): 5 (Pt required set up assistance for task. OT handed pt OJ with straw, pt was able to bring to his mouth in order to take a drink. Pt then asked OT to cut up his [place] toast and pour his syrup on for him. Pt declined eating at this time stating he wanted it set up incase he found his appetite.) Other Treatment Pt laying in bed during session, he was able to drink glass of OJ with set up. Pt reported he did not think he had ate any of his breakfast, his breakfast tray was untouched on the side table. OT positioned food in front of pt, pt stated he has not had much of an appetite but he did not want his tray to be moved out of his way. Pt asked for his food to be cut up for him and assistance with syrup containers. Pt declined eating at this time but stated he wanted it ready for him in case he got hungry. During session, OT reoriented pt, he was able to report he was in [place] by looking at his white board in front of him and he knew he was in the hospital. OT oriented pt to date and talked to him about the weather outside. Post OT session, pt laying in bed with HOB elevated with breakfast tray set up in front of him. His call light is within reach and all needs met. Education OT Patient Education: Correct positioning, Energy conservation, Modified ADL techniques, Progress toward Goal/Update tx plan, Purpose of tx/functional activities Teaching Recipient: Patient Teaching Methods: Discussion Response to Teaching: Reinforcement Needed OT Radiation Therapist Goals Retirement Goals Time Frame: Jun 08, 2019 Eating (QC): 5 Oral Hygiene (QC): 3 Toileting Hygiene (QC): 3 Shower/Bathe Self (QC): 2 Upper Body Dressing (QC): 3 Lower Body Dressing (QC): 2 On/Off Footwear (QC): 2 Additional Goals: 1-Demonstrate ADL Tasks, 2-Verbalize Understanding, 3- ImproveStrength/Jay 1=Demonstrate adherence to instructed precautions during ADL tasks. 2=Patient will verbalize/demonstrate understanding of assistive devices/modifi cations for ADL. 3=Patient will improve strength/tolerance for activity to enable patient to perform ADL's. OT Education/Plan Problem List/Assessment Assessment: Decreased Activ Tolerance, Decreased UE Strength, Impaired I ADL's, Impaired Self-Care Skills Discharge Recommendations Plan/Recommendations: Continue POC Treatment Plan/Plan of Care Patient would benefit from OT for education, treatment and training to promote independence in ADL's, mobility, safety and/or upper extremity function for ADL's. Plan of Care: ADL Retraining, Caregiver Training, Functional Mobility, UE Funct Exercise/Act Treatment Duration: Jun 08, 2019 Frequency: 5 times per week Estimated Hrs Per Day: .25 hour per day Agreement: Yes Rehab Potential: Fair Time/GCodes Start Time: 09:52 Stop Time: 10:02 Total Time Billed (hr/min): 10 Billed Treatment Time 1, ADL VIVIANA SUTTON OT May 30, 2019 10:51
--- NOTE | 2019-05-30 11:11 | Discharge Summary ---
THOMPSON CABRAL,MED STUDENT 05/30/19 1111: Diagnosis/Chief Complaint Date of Admission May 26, 2019 at 20:13 Date of Discharge Discharge Date: May 30, 2019 Discharge Time: 11:04 Admission Diagnosis A/P 1. Recurrent upper GI bleed aggravated by aspirin will hold continue proton pump inhibitor therapy and Carafate per Dr. ELIZALDE. Patient currently is hemodynamically stable advise continuing to hold aspirin for at least several weeks with indefinite proton pump inhibitor therapy and conservative medical management. 2. History of coronary artery disease 3. Dementia 4. Anemia secondary to number 1/upper GI bleed continue to monitor blood counts hemoglobin up from the 7 range to 9 after 2 units of packed cells Primary Care Ezequiel Calderon MD Discharge Diagnosis (1) Upper GI hemorrhage Status: Acute (2) Acute blood loss anemia Status: Acute (3) Acute on chronic renal failure Status: Acute (4) Bilateral leg edema Status: Acute (5) Dementia Status: Acute Discharge Summary Procedures/Consulations General Surgery Entry Level OT and PT Discharge Physical Exam Allergies: Coded Allergies: No Known Drug Allergies (Unverified , 05/03/19) Vitals & I&Os Vital Signs Date Time Temp Pulse Resp B/P (MAP) Pulse Ox O2 Delivery O2 Flow Rate FiO2 05/30/19 08:00 Room Air 05/30/19 08:00 36.4 60 20 167/67 (100) 97 General Appearance: No Apparent Distress, Chronically ill HEENT: PERRL/EOMI, Pharynx Normal Respiratory: Chest Non Tender, Lungs Clear, Normal Breath Sounds, No Accessory Muscle Use, No Respiratory Distress Cardiovascular: Regular Rate, Rhythm, No Murmur Gastrointestinal: Non Tender, Soft Extremity: No Calf Tenderness, No Pedal Edema Skin: Warm/Dry, Pallor Neurologic/Psychiatric: Alert, Normal Mood/Affect, Disoriented Hospital Course Was the Problem List Reviewed?: Yes Patient was admitted from the ED on 05/26/19 for acute GI bleed and anemia after an episode of hematemesis was reported by [facility] staff. General surgery was consulted and an EGD was performed which showed a 4cm hiatal hernia and 2 eddie ulcerations without active bleeding. He was placed on protonix, iron infusion, and received 3 total units PRBCs during his hospital stay with improvement in hemoglobin. PT and OT were consulted to help him work towards independence with ADLs. He is feeling better today and has not had any further episodes of hematemesis. He will be discharged back to [facility] with half-way today in stable condition. Labs (last 24 hrs) Laboratory Tests 05/29/19 11:07: Glucometer 140H 05/29/19 16:11: Glucometer 176H 05/29/19 19:41: Glucometer 162H 05/30/19 05:35: Glucometer 130H 05/30/19 05:47: Hemoglobin 8.7L, Hematocrit 27L Patient resulted labs reviewed. Pending Labs Laboratory Tests 05/30/19 05:35: Glucometer 130 05/30/19 05:47: Hemoglobin 8.7, Hematocrit 27 Discharge Home Medications: Active Scripts Active Carafate (Sucralfate) 1 Gm Tablet 1 Gm PO ACHS 30 Days Clonidine HCl 0.1 Mg Tablet 0.1 Mg PO Q4HR PRN 30 Days Nitroglycerin 0.4 Mg Tab.subl 0.4 Mg SL PRN PRN 365 Days Reported Clopidogrel (Clopidogrel Bisulfate) 75 Mg Tablet 75 Mg PO DAILY Pantoprazole Sodium 40 Mg Tablet.dr 40 Mg PO BID Iron (Ferrous Sulfate) 325 Mg Tablet 325 Mg PO Q48H Furosemide 40 Mg Tablet 40 Mg PO DAILY Carvedilol 12.5 Mg Tablet 12.5 Mg PO BID Vitamin D3 (Cholecalciferol (Vitamin D3)) 1,000 Unit Capsule 2,000 Unit PO DAILY Vitamin B Complex 1 Each Tablet 2 Tab PO DAILY Tums (Calcium Carbonate) 200 Mg Tab.chew 2 Tab.chew PO BID Triamcinolone Acetonide 0.1% Cream (Triamcinolone Acet) 15 Gm Cr TP BID APPLY TO L THUMB Systane Nighttime Eye Oint (Mineral Oil/Petrolatum,White) 3.5 Gm Oint...g. OU HS PRN Risperidone 0.25 Mg Tablet 0.25 Mg PO BID Pataday (Olopatadine HCl) 2.5 Ml Drops 1 Drop OU DAILY Paroxetine HCl 20 Mg Tablet 20 Mg PO DAILY Novolog Flexpen (Insulin Aspart) 300 Units/3 Ml Solution 4 Units SQ TIDAC Lipitor (Atorvastatin Calcium) 10 Mg Tablet 10 Mg PO HS Levemir Flextouch (Insulin Detemir) 100 Unit/1 Ml Insuln.pen 15 Unit SQ DAILY Gabapentin 100 Mg Capsule 100 Mg PO BID Bydureon Bcise (Exenatide Microspheres) 2 Mg/0.85 Ml Auto.injct 2 Mg SQ WE Bisacodyl 10 Mg Supp.rect 10 Mg RC DAILY PRN Aspirin EC (Aspirin) 81 Mg Tablet.dr 81 Mg PO DAILY Ascorbic Acid 500 Mg Tablet 1,000 Mg PO BID TAKES 2 (500MG) TABLETS Instructions to patient/family Please see electronic discharge instructions given to patient. Clinical Quality Measures DVT/VTE Risk/Contraindication: Risk Factor Score Per Nursin RFS Level Per Nursing on Admit: 4+=Very High PREMA ORTIZ DO 05/30/192118: Diagnosis/Chief Complaint Discharge Diagnosis (1) Upper GI hemorrhage Status: Acute (2) Renal insufficiency Status: Acute (3) HTN (hypertension) Status: Acute (4) IDDM (insulin dependent diabetes mellitus) Status: Acute (5) Dementia Status: Acute Discharge Summary Discharge Physical Exam Allergies: Coded Allergies: No Known Drug Allergies (Unverified , 05/03/19) General Appearance: No Apparent Distress, WD/WN, Chronically ill Respiratory: Lungs Clear Cardiovascular: Regular Rate, Rhythm Neurologic/Psychiatric: Alert, Disoriented Hospital Course Was the Problem List Reviewed?: Yes Hospital Course: Pt had an uneventful hospital course he was admitted for hematemesis, EGD performed showed gastric ulcers with hiatal hernia. Proton pump inhibitor and Carafate maintained and pt was advanced on his diet which was tolerated. Dementia and chronic shelter status precludes anything but a poor prognosis with the severity of his dementia and he was ready for DC and he was DC in stable condition. Hgb improved but overall appeared to be very pale. He did receive iron infusion one dosen before DC. Discussion & Recommendations Discharge Planning: <30 minutes discharge planning Supervisory-Addendum Brief Verification & Attestation Participated in pt care: history, MDM, physical Personally performed: exam, history, MDM, supervision of care Care discussed with: Medical Student Procedures: n/a Results interpretation: Verified all documentation Verification and Attestation of Medical Student E/M Service A medical student performed and documented this service in my presence. I reviewed and verified all information documented by the medical student and made modifications to such information, when appropriate. I personally performed the physical exam and medical decision making. Prema Ortiz, May 30, 2019,21:18 THOMPSON CABRAL,MED STUDENT May 30, 2019 11:11 PREMA ORTIZ DO May 30, 2019 21:19
[2019-05-30] MEDS: inSUlin ASPART (NovoLOG) 1 UNIT/0.01 ML (CHARGE PER UNIT) SC SCH (11:37)
--- NOTE | 2019-05-30 12:31 | NUR ---
RD ASSESSMENT PMHx: CAD; hypercholesterolemia; HTN; dementia; PUD; DM; hx of dysphagia PT INTERACTION: Pt was awake and pleasant during nutrition assessment. Note pt has AMS and is a poor historian, per chart review. Pt states current appetite is not good, but does not know how long it has been this way. Note pt avg PO intake of <50% x2d, per chart review. Pt states following a regular diet at home and has no issues with chewing/swallowing food at this time. Pt states no recent issues with n/v/c/d at this time. Note last BM was 05/29 and pt not currently on bowel regimen, per chart review. Pt states no recent wt changes, "but it could be down from what it used to be." Pt unable to give UBW, and note unable to determine recent wt hx, per chart review. Pt states current DM management is "good, I guess. I'm not sure." Note unable to determine most recent HbA1c, per chart review. ABNORMAL NUTRITION-RELATED LAB VALUES LOW: Ca 7.3; Pro 4.6; alb 2.8 HIGH: Cl 114; BUN 33; cr 1.74; glu 143 Est. kcal needs: 9266-3550 kcal | 25-30 kcal/kg Est. Pro needs: 65-81 g Pro | 0.8-1.0 g Pro/kg PES STATEMENT: Inadequate oral intake (NI-2.1) related to loss of appetite | AMS as evidenced by pt interview | avg PO intake <50% x2d INTERVENTION: Continue with current diet order of Regular diet. Add Glucerna (vary) to meals BID for increased kcal intake. Provides 220 kcal and 10 g Pro per serving. Will continue to follow and reassess as pt needs and status change. MONITOR/EVALUATE: PO Intake; Plan of Care; Hydration Status; Weight Status; Lab Values Gael Junior, MS, RD, LD
--- NOTE | 2019-06-01 11:59 | NUR ---
CM FINALIZED DISCHARGE PLANNING: Patient is returning to [facility] skilled for therapies.
== END 2019-05-30 15:08 | DRG 380 ==
LOC: EDUNIT# 18:29 → ER 18:30 → 4TH 20:13
PROVIDERS: ADMIT Internal Medicine; ATTEND Internal Medicine
PROC: 0DB78ZX Excision of Stomach, Pylorus, Via Natural or Artificial Opening Endoscopic, Diagnostic (ICD-10-PCS; 2019-05-28)
PROC: 0DB48ZX Excision of Esophagogastric Junction, Via Natural or Artificial Opening Endoscopic, Diagnostic (ICD-10-PCS; principal; 2019-05-28 14:45)
DX: K22.11 Ulcer of esophagus with bleeding (principal); D62 Acute posthemorrhagic anemia; K29.70 Gastritis, unspecified, without bleeding; I21.4 Non-ST elevation (NSTEMI) myocardial infarction; I25.10 Atherosclerotic heart disease of native coronary artery without angina pectoris; I13.0 Hypertensive heart and chronic kidney disease with heart failure and stage 1 through stage 4 chronic kidney disease, or unspecified chronic kidney disease; N17.9 Acute kidney failure, unspecified; F01.51 Vascular dementia, unspecified severity, with behavioral disturbance; Z66 Do not resuscitate; N18.9 Chronic kidney disease, unspecified; I50.9 Heart failure, unspecified; E78.00 Pure hypercholesterolemia, unspecified; E11.42 Type 2 diabetes mellitus with diabetic polyneuropathy; E11.51 Type 2 diabetes mellitus with diabetic peripheral angiopathy without gangrene; G25.0 Essential tremor; R13.10 Dysphagia, unspecified; R26.9 Unspecified abnormalities of gait and mobility; H57.89 Other specified disorders of eye and adnexa; F32.9 Major depressive disorder, single episode, unspecified; K59.09 Other constipation; N40.1 Benign prostatic hyperplasia with lower urinary tract symptoms; R32 Unspecified urinary incontinence; Z79.82 Long term (current) use of aspirin; R60.0 Localized edema; K44.9 Diaphragmatic hernia without obstruction or gangrene; Z79.01 Long term (current) use of anticoagulants
CPT/HCPCS: 36415; 71045; 74176; 80053; 82962; 83690; 83880; 84484; 85014; 85018; 85025; 85610; 86850; 86870; 86900; 86901; 86902; 86920; 86922; 93005; 96361; 96365; 96367; 96368; 96375